=== PATIENT | male | born 1945 | race Caucasian/White ===

== ENCOUNTER 2017-01-20 09:07 | Day surgery (SDC) | payer OTHER ==
[2017-01-19 11:58] VITALS: BMI 33.1
[2017-01-20] MEDS ORDERED: LIDOCAINE HCL/PF 1% SDV 5ML VIAL ONE (09:32)
[2017-01-20] MEDS ORDERED: PROPOFOL 20 ML ONE ×2 (09:32)
[2017-01-20 10:24] VITALS: TEMP 98.1
[2017-01-20 11:15] VITALS: BP 143/64; PULSE 53
--- NOTE | 2017-01-21 13:16 | PATH ---
Surgical Pathology Report Patient Name: BRADEN CAT [facility]. Rec. #: [id number] /Age/Gender: 1945 (Age: 71) / M Account: [id number] Location: U-ENDOSCOPY Taken: 01/20/2017 Received: 01/20/2017 Reported: 01/21/2017 Physicians: Óscar Bradley D.O. Specimen(s) Received A: POLYP TRANSVERSE COLON B: POLYP DESCENDING COLON Clinical History History of polyps Colon polyps and hemorrhoids Final Diagnosis A. COLON, TRANSVERSE, POLYP, POLYPECTOMY: POLYPOID FRAGMENT OF COLONIC MUCOSA WITH PROMINENT REACTIVE LYMPHOID AGGREGATE AND FOCAL SURFACE HYPERPLASTIC CHANGE B. COLON, DESCENDING, POLYP, POLYPECTOMY: HYPERPLASTIC POLYP. Electronically Signed Cain Kahn M.D. Gross Description A. Received in formalin, labeled "polyp transverse colon" is a hopson, irregular portion of soft tissue measuring 0.4 cm in greatest dimension. The specimen is submitted in toto in one cassette. B. Received in formalin, labeled "polyp descending colon" is a hopson, irregular portion of soft tissue measuring 0.3 cm in greatest dimension. The specimen is submitted in toto in one cassette. 01/20/201701/20/2017
== END 2017-01-20 11:15 | disposition home or self-care (01) ==
LOC: JASU-ENDO 09:07
PROVIDERS: ATTEND Internal Medicine Gastroenterology
PROC: 0DBL8ZX Excision of Transverse Colon, Via Natural or Artificial Opening Endoscopic, Diagnostic (ICD-10-PCS; 2017-01-20)
PROC: 0DBM8ZX Excision of Descending Colon, Via Natural or Artificial Opening Endoscopic, Diagnostic (ICD-10-PCS; principal; 2017-01-20 10:00)
DX: Z12.11 Encounter for screening for malignant neoplasm of colon (principal); Z86.010 Personal history of colon polyps; D12.4 Benign neoplasm of descending colon; D12.3 Benign neoplasm of transverse colon; K64.8 Other hemorrhoids
CPT/HCPCS: 88305-TC

== ENCOUNTER 2018-03-23 09:34 | Day surgery (SDC) | payer OTHER ==
[2018-03-22 12:42] VITALS: BMI 29.3
[2018-03-23] MEDS ORDERED: BUPIVACAINE HCL/PF (5 MG/ML) 30 ML VIAL IJ ONE (10:31)
[2018-03-23] MEDS ORDERED: DEXAMETHASONE SOD PHOSPHATE/PF 10 MG/ML SDV ONE (10:31)
[2018-03-23] MEDS ORDERED: MIDAZOLAM HCL 2 MG/2 ML SINGLE DOSE VIAL ONE ×2 (10:31→11:56)
[2018-03-23] MEDS ORDERED: EPINEPHrine 1:1,000 1 MG/1 ML - 30ML VIAL (INJECTION) ONE (11:05)
[2018-03-23] MEDS ORDERED: LACTATED RINGERS SOLUTION 1,000 ML IV SCH (11:15)
[2018-03-23] MEDS ORDERED: ONDANSETRON 4 MG/2 ML VIAL IVPUSH PRN (11:15)
[2018-03-23] MEDS ORDERED: oxyCODONE HCL 5 MG TABLET PO PRN ×2 (11:15)
[2018-03-23] MEDS ORDERED: LIDOCAINE HCL/PF 2% SDV 5ML VIAL ONE (11:21)
[2018-03-23] MEDS ORDERED: PROPOFOL 20 ML ONE ×6 (11:21→14:10)
[2018-03-23] MEDS ORDERED: DEXAMETHASONE SOD PHOSPHATE 4 MG/1 ML VIAL ONE (11:23)
[2018-03-23] MEDS ORDERED: KETOROLAC TROMETHAMINE 30 MG/1 ML VIAL ONE (11:23)
[2018-03-23] MEDS ORDERED: SUCCINYLCHOLINE CHLORIDE 200 MG/10 ML VIAL ONE (11:23)
--- NOTE | 2018-03-23 11:36 | OP ---
Operative Note - Note: Operative Date: 03/23/18 Pre-Operative Diagnosis: right shoulder rotator cuff tear, biceps tendinopathy, impingement Operation: right shoulder arthroscopy with rotator cuff repair, subacromial decompression, biceps tenotomy Implants: arthrex swivel lock x3 Post-Operative Diagnosis: Same as Pre-op Surgeon: Orion Guallpa Commercial Manager: Migue Mccray Anesthesia: General, Fractional Estimated Blood Loss (mls): 30 Operative Report Dictated: Yes
[2018-03-23] MEDS ORDERED: SODIUM CHLORIDE 0.9% P/F 10 ML VIAL IJ ONE (11:52)
[2018-03-23] MEDS ORDERED: ceFAZolin SODIUM 1 GM VIAL ONE (11:52)
--- NOTE | 2018-03-23 15:16 | OP ---
DATE OF OPERATION: 03/23/2018 PREOPERATIVE DIAGNOSIS: Right shoulder rotator cuff tear. POSTOPERATIVE DIAGNOSIS: Right shoulder rotator cuff tear. PROCEDURE: Right shoulder arthroscopy, rotator cuff repair, subacromial decompression, biceps tenotomy. ANESTHESIA: General and regional. POSTOPERATIVE CONDITION: Stable. COMPLICATIONS: None. SURGEON: Orion Guallpa MD WANT AD SUPERVISOR: MELLISSA Esqueda, whose skillful assistance was necessary for the safe and timely performance of this procedure. Mr. Mccray was able to help provide limb positioning, drive the camera, assist in suture passage, as well as insertion of fixation hardware. IMPLANTS: Arthrex SwiveLock x3. INDICATIONS: This is a pleasant, 72-year-old gentleman who has been experiencing right shoulder pain. MRI demonstrated full-thickness rotator cuff tear. Treatment options including nonoperative versus operative management were reviewed. Operative risks were reviewed in detail including bleeding, infection, neurovascular injury, need for further surgery, postoperative pain and stiffness, re-tear, progression of osteoarthritis. We discussed medical risks such as heart attack, stroke, DVT, PE, and . We discussed the lengthy rehabilitation from a surgery like this. I addressed all the patient's questions. He voiced understanding and elected to proceed. DESCRIPTION OF PROCEDURE: The patient was brought to the operating room after administration of a regional block in the preoperative holding area. He was placed into the beach chair position while still awake. All bony prominences were padded. The right upper extremity was then examined, demonstrating forward flexion to approximately 120 degrees and abduction to 80 degrees and external rotation to 40 degrees. Prior to prepping and draping the patient, he was gently manipulated, increasing forward flexion to 150 degrees. The patient was then prepped and draped in the usual sterile fashion. A preoperative dose of antibiotics given and the usual timeout procedure was performed. The standard posterior viewing portal was now established with an 11 blade. The arthroscope was passed into the joint. Examination of the cartilaginous surfaces demonstrated mild cartilage wear. Examination of the biceps demonstrated it was severely subluxed medially. No subscapularis was visualized. The arthroscope was now passed superiorly. Here , the anterior edge of the supraspinatus extending into the body of the infraspinatus was fully torn. The labrum was inspected, and there were some degenerative changes to the labrum diffusely. The incision was now made to release the biceps. This was done using a basket cutter device. The base was smoothed using a shaver. The synovitis on the anterior aspect of the joint was debrided as well. The dissection was now carried out, freeing the subscapularis from the surrounding scarred in tissue. This included release of the rotator interval. The subscapularis was released superiorly extending all the way to the base of the coracoid. Any adhesions on the posterior aspect were released as well utilizing a 70-degree scope to gain better visualization. The upper border of the subscapularis was sutured using a FiberLink suture and a Scorpion suture passer device. This was then repeated inferiorly. Attention was now turned towards the lesser tuberosity. Again, utilizing a 70- degree scope, the lesser tuberosity was debrided utilizing electrocautery as well as a shaving device. The previously passed sutures were now loaded onto 2 anchors which were punched and then inserted, reducing the subscapularis onto its anatomic footprint. Now that this repair was satisfactory, attention was turned to the greater tuberosity. Here, utilizing the regular 30-degree arthroscope, the footprint was debrided in similar fashion. Again, using the shaver and electrocautery, the cuff was debrided from the surrounding tissue including extensive subacromial bursectomy and decompression which was mostly laterally where most of the tightness was noted in the subacromial space. The rotator cuff was then sutured along the mid-portion of the supraspinatus tear utilizing a horizontal mattress pattern with the FiberTape suture. This was then loaded onto an anchor, and the supraspinatus was mobilized both laterally and anteriorly, reducing it onto the footprint. Full reduction over the footprint was not possible secondary to tissue loss due to the chronicity of the tear. Utilizing the sutures from the core of this anchor, these were passed in a [id number] fashion between the more anterior leaf of the supraspinatus and the body, closing down the anterior gap. The remainder of the tissue was examined, and no further mobilization or repair was possible. This left approximately the anterior 20% of the supraspinatus footprint uncovered. At this time, the excess fluid was withdrawn from the joint. The portals were sutured using 3-0 nylon. Sterile dressings were placed. Patient was extubated and transferred to recovery room in stable condition. Catalina [id number] MTDD
[2018-03-23 16:13] VITALS: TEMP 97.5
[2018-03-23 17:23] VITALS: BP 134/76; PULSE 92
== END 2018-03-23 16:50 | disposition home or self-care (01) ==
LOC: FASU 09:34
PROVIDERS: ATTEND Orthopaedic Surgery Sports Medicine
PROC: 0LN14ZZ Release Right Shoulder Tendon, Percutaneous Endoscopic Approach (ICD-10-PCS; 2018-03-23)
PROC: 0LQ14ZZ Repair Right Shoulder Tendon, Percutaneous Endoscopic Approach (ICD-10-PCS; principal; 2018-03-23 12:10)
PROC: 0RNJ4ZZ Release Right Shoulder Joint, Percutaneous Endoscopic Approach (ICD-10-PCS; 2018-03-23 12:10)
DX: M75.121 Complete rotator cuff tear or rupture of right shoulder, not specified as traumatic (principal)
CPT/HCPCS: 94760

== ENCOUNTER 2018-10-21 14:28 | Inpatient (IN) | payer OTHER ==
--- NOTE | 2018-10-21 14:56 | PDOC ---
History of Present Illness - General Stated Complaint: FEVER/CHILLS Time Seen by Provider: 10/21/18 14:56 - History of Present Illness Initial Comments: Brandon Martinez is a 73yo man with a PMH of HLD, CAD s/p stents, previous CVA who presents with fevers to 102 and shivering chills for two days following a prostate biopsy. He reports that he was seen on Tuesday by urology due to symptoms of difficulty urinating and dysuria (reported by pt's , though he denies dysuria currently). Per Mr Martinez and his , he had an ultrasound and prostate biopsy. Following the procedure, he was sent home with oral antibiotics , which he has been taking as prescribed. On night, he started to have fevers and shivering chills at home. His reports that the fevers have been up to 102F, and he has been taking acetaminophen every 4-6 hours at home to control the fever. He otherwise denies any associated symptoms including headache, congestion, cough, chest pain, nausea/vomiting, abdominal pain, change in bowel habits, dysuria, hematuria, frequency, or penile discharge. Past History - Past Medical History Allergies/Adverse Reactions: Allergies Allergy/AdvReac Type Severity Reaction Status Date / Time No Known Allergies Allergy Verified 10/21/18 15:12 Home Medications: Ambulatory Orders Aspirin [Aspirin EC] 81 mg PO DAILY #0 tab.chew 02/04/12 Nora-3 Fatty Acids [Nora-3] 1,000 mg PO DAILY 05/20/14 Pnv/Iron,Carb/Om-3/FA/Fat 1 [Multivitamin with Minerals Cap] 1 each PO DAILY Pravastatin Sodium [Pravachol -] 40 mg PO HS 03/23/18 Anemia: No Asthma: No Cancer: No Cardiac Disorders: Yes (CAD) CVA: Yes (2013-no weakness) COPD: No CHF: No Dementia: No Diabetes: No GI Disorders: No Disorders: Yes (BPH) HTN: No Hypercholesterolemia: Yes Liver Disease: No Seizures: No Thyroid Disease: No - Surgical History Abdominal Surgery: Yes (Left Inguinal Hernia Repair) Appendectomy: No Cardiac Surgery: Yes (CARDIAC STENTS X 3) Cholecystectomy: No Lung Surgery: No Neurologic Surgery: Yes (Cervical Fusion) Orthopedic Surgery: Yes (Cervical Fusion 10yrs ago) - Suicide/Smoking/Psychosocial Hx Smoking Status: No Smoking History: Former smoker Have you smoked in the past 12 months: No Number of Cigarettes Smoked Daily: 10 If you are a former smoker, when did you quit?: 2010 Hx Alcohol Use: Yes (Occasional) Drug/Substance Use Hx: No Substance Use Type: Alcohol Hx Substance Use Treatment: No Review of Systems - Review of Systems Comments:: General: +Fevers, +shivering. No weight or appetite change, no malaise HEENT: No changes in vision, no changes in hearing, no congestion, no sore throat CV: No chest pain, no palpitations, no LE edema Pulm: No SOB, no cough, no wheezing GI: No nausea or vomiting, no change in bowel habits, no melena : No frequency, no urgency, no dysuria. Recent prostate biopsy Musc: No back pain, no joint swelling, no recent injury Skin: No rash, no lesions, no erythema Endo: No excessive thirst, no heat/cold intolerance Heme: No unusual bruising or bleeding, no swollen glands Neuro: No syncope, no numbness/tingling, no focal weakness Vasc: No claudication Psych: No recent change in mood, no SI or HI *Physical Exam - Physical Exam Comments: General: Comfortable, no acute distress HEENT: PERRL, EOMI, MMM, voice normal, normal neck ROM, no LAD Cards: RRR, no murmur appreciated Pulm: Comfortable on room air, clear to auscultation bilaterally Abd: Soft, nontender, nondistended : No CVA tenderness Rectal: Normal tone, no blood noted, no perianal lesions Ext: Atraumatic. No LE edema. ROM intact. Strength 5/5 and equal bilaterally Vasc: Extremities WWP. Palpable radial and pedal pulses bilaterally Skin: Normal color, no rashes or lesions Neuro: A&Ox3, CN grossly intact, normal speech, motor/sensory grossly intact and symmetric Psych: Mood appropriate to situation ED Treatment Course - LABORATORY CBC & Chemistry Diagram: 10/21/18 16:50 10/21/18 16:50 Medical Decision Making - Medical Decision Making 10/21/18 15:19 Brandon Martinez is a 73yo man with a PMH of CAD s/p stents (6-7yrs ago), previous CVA, and HLD who presents with fevers to 102F and shivering chills at home following a prostate biopsy on Tuesday. - Concerning for gram negative bacteremia secondary to prostate biopsy. Ddx also includes prostatitis, UTI, or infection of the surgical incision/site. - Sepsis workup initiated including CBC, CMP, coags, UA, urine culture, blood cultures, lactate, EKG, CXR - 2500mL NS per sepsis protocol - Zosyn for possible bacteremia. Given recent prostate biopsy, most likely gram negatives. No history concerning for MRSA 10/21/18 15:50 - Rectal temp 99.2 10/21/18 16:43 - Patient's reports that he is now shivering again - Oral temp rechecked. Now 99.8 - 975mg PO acetaminophen for fever; no need to recheck rectal temp at this time given fevers at home to 102 10/21/18 18:10 - Labs, EKG, CXR reviewed. - EKG with NSR - CXR with poor inspiration, but no focal abnormalities appreciated - Labs notable only for MAGUI with Cr increased to 1.4 from 0.9 on most recent labs. - Cultures pending - Contacted Dr Owens (urologist) regarding symptoms, labs, likely admission. He agrees with this plan. - Sees Dr Warren as outpatient. Contacted hospitalist team for admission for likely bacteremia. Seen and discussed with Dr Rogers and Dr Urbina. *DC/Admit/Observation/Transfer Diagnosis at time of Disposition: Fever and chills - Discharge Dispostion Condition at time of disposition: Stable Decision to Admit order: Yes - Referrals Referrals: Benoit Warren MD [Primary Care Provider] - - Patient Instructions - Post Discharge Activity
[2018-10-21] MEDS ORDERED: SODIUM CHLORIDE 0.9% 500 ML INFUS.BAG IV ONE (15:17)
[2018-10-21] MEDS ORDERED: PIPERACILLIN/TAZOB 4.5 GM 4.5 GM in DEXTROSE 5%-WATER 100 ML IVPB ONE (15:17)
[2018-10-21] MEDS ORDERED: PIPERACILLIN/TAZOB 4.5 GM 4.5 GM/100 ML BAG IVPB ONE (15:54)
--- NOTE | 2018-10-21 16:12 | PDOC ---
Attending Attestation - Resident Resident Name: MasonConsuelo - ED Attending Attestation I have performed the following: I have examined & evaluated the patient, The case was reviewed & discussed with the resident, I agree w/resident's findings & plan, Exceptions are as noted - Medical Decision Making 10/21/18 15:52 A portion of this note was documented by scribe services under my direction. I have reviewed the details of the note, within reason, and agree with the documentation with the following case summary and management plan written by me. Patient treated in the ED. Nursing notes are reviewed and incorporated into the medical decision-making. Vital signs reviewed. Peripheral IV access obtained by the nurse, laboratory studies are drawn and sent, reviewed and interpreted by myself. Vital Signs Temp Pulse Resp BP Pulse Ox 98 F 71 16 111/71 100 10/21/18 14:30 10/21/18 14:30 10/21/18 14:30 10/21/18 14:30 10/21/18 14:30 73-year-old male with past medical history of hyperlipidemia, BPH. The patient presents with fevers and chills for 2 days. 3 days ago, the patient underwent routine prostate biopsy. The following day, developed fevers and chills. Denies any abdominal pain. Denies dysuria. Patient called his urologist, Dr. Valenzuela, who directed pt to the ER. Findings concerning for bacteremia. Sepsis workup initiated. We'll start empiric Zosyn for potential gram-negative aleah sepsis. Labs, blood cultures and admission to the hospital. <Gibran Rogers - Last Filed: 10/21/18 16:12> - HPI HPI: 10/21/18 16:32 The patient is a 73-year-old male, with a past medical history of HLD and BPH, who presents to the ED with 2 days of fevers/chills. Patient reports having a routine prostate biopsy 3 years ago. Patient called his Urologist (Dr. Hickey) who advised that the patient report to the ED for further evaluation. The patient denies any chest pain, shortness of breath, dizziness and headache. Denies nausea, vomiting, diarrhea and constipation. Denies dysuria, frequency, urgency and hematuria. - Physicial Exam PE: 10/21/18 16:28 GENERAL: Awake, alert, and fully oriented, in no acute distress HEAD: No signs of trauma EYES: PERRLA, EOMI, sclera anicteric, conjunctiva clear ENT: Auricles normal inspection, hearing grossly normal, nares patent. Moist mucosa NECK: Normal ROM, supple, no lymphadenopathy, JVD, or masses ABDOMEN: Soft, nontender, normoactive bowel sounds. No guarding, no rebound. No masses EXTREMITIES: Normal range of motion, no edema. No clubbing or cyanosis. No cords, erythema, or tenderness NEUROLOGICAL: Cranial nerves II through XII grossly intact. Normal speech, normal gait SKIN: Warm, Dry, normal turgor, no rashes or lesions noted. <Monica Greco - Last Filed: 10/21/18 16:33> Heart Score/ECG Review #1 ECG reviewed & interpreted by me at: 15:20 10/21/18 16:12 NSR 69, no std/argenis, left axis deviation, intervals WNL, QTC 407 msec <Gibran Rogers - Last Filed: 10/21/18 16:12> Attestations - Attestations 10/21/18 16:33 Documentation prepared by Monica Greco, acting as medical staff services manager for Gibran Rogers MD. <Monica Greco - Last Filed: 10/21/18 16:33>
[2018-10-21 16:24] LABS: URINE APPEARANCE CLEAR; URINE BILIRUBIN NEGATIVE (<2.0 mg/dL); URINE COLOR AMBER; URINE GLUCOSE (UA) NEGATIVE (NEGATIVE); URINE KETONE TRACE (NEGATIVE); URINE LEUK ESTERASE NEGATIVE (NEGATIVE); URINE NITRITE NEGATIVE (NEGATIVE); URINE PROTEIN NEGATIVE (NEGATIVE); URINE UROBILINOGEN 4.0 E.U/dl mg/dL (0.2-1.0)
[2018-10-21] MEDS ORDERED: ACETAMINOPHEN 325 MG TABLET (FP) PO ONE (16:43)
[2018-10-21 17:01] LABS: BASO % 0.3 % (0-2.0); EOS % 1.4 % (0-4.5); HEMATOCRIT 43.9 % (35.4-49); HEMOGLOBIN 15.1 GM/dL (11.7-16.9); LYMPH % 7.1 % (8-40); MCH 31.2 pg (25.7-33.7); MCHC 34.3 g/dl (32.0-35.9); MEAN CELL VOLUME 90.8 fl (80-96); MEAN PLT VOLUME 8.8 fl (7.5-11.1); MONO % 5.2 % (3.8-10.2); PLATELET COUNT 235 K/MM3 (134-434); RBC 4.84 M/mm3 (4.00-5.60); RDW 13.2 % (11.9-15.9); WHITE BLOOD COUNT 7.3 K/mm3 (4.0-10.0)
[2018-10-21 17:03] LABS: VENOUS PH 7.32 (7.32-7.42)
[2018-10-21] MEDS ORDERED: ACETAMINOPHEN 325 MG TABLET (FP) ONE (17:07)
[2018-10-21 17:38] LABS: ALBUMIN 3.5 g/dl (3.4-5.0); ALK PHOS 57 U/L (45-117); ANION GAP 6 MMOL/L (8-16); BILIRUBIN,TOTAL 0.2 mg/dL (0.2-1); BLOOD UREA NITROGEN 18 mg/dL (7-18); CALCIUM 8.2 mg/dL (8.5-10.1); CHLORIDE 101 mmol/L (98-107); CO2 31 mmol/L (21-32); CREATININE 1.4 mg/dL (0.55-1.3); GLUCOSE,RANDOM 96 mg/dL (74-106); POTASSIUM 4.4 mmol/L (3.5-5.1); SGOT/AST 95 U/L (15-37); SGPT/ALT 96 U/L (13-61); SODIUM 138 mmol/L (136-145); TOT PROT 6.9 g/dl (6.4-8.2)
[2018-10-21] MEDS ORDERED: ACETAMINOPHEN 325 MG TABLET (FP) PO PRN (19:37)
--- NOTE | 2018-10-21 19:52 | HP ---
Admitting History and Physical - Primary Care Physician PCP: Benoit Warren - Admission Chief Complaint: Fever, Chills History of Present Illness: This is a 73 y/o man with a PMHx of CAD s/p Stents x2, HLD, CVA (no residual), BPH. Who presents to the ED with fever, chills x2 days. Patient is s/p prostate biopsy last Tuesday placed on sulfamethoxazole, per patient's was taken as prescribed. Patient's spouse reports pt having a subjective fever 102 at home , with chills and shakiness. Patient denies cough, SOB, dizziness, AIKEN, CP, palpitations, AP, N/V/D, constipation. 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 Cardiovascular: Yes: CAD, Hyperlipdemia Renal/: Yes: BPH - Past Surgical History Past Surgical History: Yes: Arthrosocopy (right shoulder), Stent - Smoking History Smoking history: Former smoker Have you smoked in the past 12 months: No Aproximately how many cigarettes per day: 10 If you are a former smoker, when did you quit?: 2010 - Alcohol/Substance Use Hx Alcohol Use: Yes (Occasional) History of Substance Use: reports: None - Social History Usual Living Arrangement: Yes: With Spouse ADL: Independent History of Recent Travel: No Home Medications - Allergies Allergies/Adverse Reactions: Allergies Allergy/AdvReac Type Severity Reaction Status Date / Time No Known Allergies Allergy Verified 10/21/18 15:12 - Home Medications Home Medications: Ambulatory Orders Aspirin [Aspirin EC] 81 mg PO DAILY #0 tab.chew 02/04/12 [place]-3 Fatty Acids [[place]-3] 1,000 mg PO DAILY 05/20/14 Pnv/Iron,Carb/Om-3/FA/Fat 1 [Multivitamin with Minerals Cap] 1 each PO DAILY Pravastatin Sodium [Pravachol -] 40 mg PO HS 03/23/18 Family Disease History - Family Disease History Family History: Unable to Obtain Review of Systems - Review of Systems Constitutional: reports: Chills, Fever Eyes: reports: No Symptoms HENT: reports: No Symptoms Neck: reports: No Symptoms Cardiovascular: reports: No Symptoms Respiratory: reports: No Symptoms Gastrointestinal: reports: No Symptoms Genitourinary: reports: No Symptoms Breasts: reports: No Symptoms Reported Musculoskeletal: reports: No Symptoms Integumentary: reports: No Symptoms Neurological: reports: No Symptoms Endocrine: reports: No Symptoms Hematology/Lymphatic: reports: No Symptoms Psychiatric: reports: No Symptoms Physical Examination Vital Signs: Vital Signs Temperature 97.8 F 10/21/18 18:29 Pulse Rate 92 H 10/21/18 18:29 Respiratory Rate 16 10/21/18 18:29 Blood Pressure 114/61 10/21/18 18:29 O2 Sat by Pulse Oximetry (%) 97 10/21/18 18:29 Constitutional: Yes: Well Nourished, No Distress, Calm, Obese Eyes: Yes: WNL, Conjunctiva Clear, EOM Intact, PERRL HENT: Yes: WNL, Atraumatic, Normocephalic Neck: Yes: WNL, Supple, Trachea Midline Cardiovascular: Yes: WNL, Regular Rate and Rhythm, S1, S2 Respiratory: Yes: Rhonchi Gastrointestinal: Yes: Normal Bowel Sounds, Soft, Abdomen, Obese, Distention Breast(s): Yes: WNL Musculoskeletal: Yes: WNL Extremities: Yes: WNL Edema: No Peripheral Pulses WNL: Yes Neurological: Yes: WNL, Alert, Confusion, Cran Nerves II-XII Intact ...Motor Strength: WNL Psychiatric: Yes: WNL, Alert Labs: CBC, BMP 10/21/18 16:50 10/21/18 16:50 Laboratory Results - last 24 hr 10/21/18 10/21/18 10/21/18 15:35 16:50 16:50 WBC 7.3 RBC 4.84 Hgb 15.1 Hct 43.9 MCV 90.8 MCH 31.2 MCHC 34.3 RDW 13.2 Plt Count 235 MPV 8.8 Absolute Neuts (auto) 6.2 Neutrophils % 86.0 H D Lymphocytes % 7.1 L D Monocytes % 5.2 Eosinophils % 1.4 Basophils % 0.3 Nucleated RBC % 0 PT with INR Cancelled INR Cancelled PTT (Actin FS) Cancelled VBG pH POC VBG pCO2 POC VBG pO2 Mixed VBG HCO3 Sodium Potassium Chloride Carbon Dioxide Anion Gap BUN Creatinine Creat Clearance w eGFR Random Glucose Lactic Acid Calcium Total Bilirubin AST ALT Alkaline Phosphatase Total Protein Albumin Urine Color Tiffanie Urine Appearance Clear Urine pH 5.0 Ur Specific Wilsey 1.027 Urine Protein Negative Urine Glucose (UA) Negative Urine Ketones Trace H Urine Blood Negative Urine Nitrite Negative Urine Bilirubin Negative Urine Urobilinogen 4.0 e.u/dl Ur Leukocyte Esterase Negative 10/21/18 10/21/18 10/21/18 16:50 16:50 16:50 WBC RBC Hgb Hct MCV MCH MCHC RDW Plt Count MPV Absolute Neuts (auto) Neutrophils % Lymphocytes % Monocytes % Eosinophils % Basophils % Nucleated RBC % PT with INR INR PTT (Actin FS) VBG pH 7.32 POC VBG pCO2 59.0 H POC VBG pO2 27.0 L Mixed VBG HCO3 29.6 H Sodium 138 Potassium 4.4 Chloride 101 Carbon Dioxide 31 Anion Gap 6 L BUN 18 Creatinine 1.4 H Creat Clearance w eGFR 49.41 Random Glucose 96 Lactic Acid 2.0 Calcium 8.2 L Total Bilirubin 0.2 AST 95 H ALT 96 H Alkaline Phosphatase 57 Total Protein 6.9 Albumin 3.5 Urine Color Urine Appearance Urine pH Ur Specific Wilsey Urine Protein Urine Glucose (UA) Urine Ketones Urine Blood Urine Nitrite Urine Bilirubin Urine Urobilinogen Ur Leukocyte Esterase Current Medications Generic Name Dose Route Start Last Admin Trade Name Freq PRN Reason Stop Dose Admin Acetaminophen 650 mg 10/21/18 22:52 10/22/18 06:18 Tylenol - PO 650 mg Q6H PRN Administration FEVER Aspirin 81 mg 10/22/18 10:00 Ecotrin - PO DAILY [facility] Atorvastatin Calcium 10 mg 10/22/18 22:00 Lipitor - PO HS KAYLYN Piperacillin Sod/Tazobactam 50 mls @ 100 mls/hr 10/22/18 18:00 Sod 3.375 gm/ Dextrose IVPB Q8H-IV [facility] Protocol Piperacillin Sod/Tazobactam 50 mls @ 100 mls/hr 10/22/18 06:45 Sod 3.375 gm/ Dextrose IVPB 10/22/18 07:14 ONCE ONE Protocol Tamsulosin HCl 0.4 mg 10/22/18 08:30 Flomax - PO DAILY@0830 [facility] Imaging - Results Chest X-ray: Image Reviewed EKG: Image Reviewed Problem List - Problems (1) Sepsis Assessment/Plan: Likely secondary to UTI vs recent Prostate Biopsy Failed Outpatient Therapy for UTI UA- neg Urine culture-pending Blood Cultures-pending LA- nl T Max 99.8 Fluid Resuscitation 2500ml, given in ED Zosyn started in ED will continue Appreciate ID consult Maintain MAP > 65 Monitor CBC, BMP Monitor vitals Tylenol prn Gentle IVF concern for fluid overload Code(s): A41.9 - SEPSIS, UNSPECIFIED ORGANISM (2) Fever and chills Assessment/Plan: See Above Code(s): R50.9 - FEVER, UNSPECIFIED (3) CAD (coronary artery disease) Assessment/Plan: s/p Stents Continue home meds EKG- reviewed Code(s): I25.10 - ATHSCL HEART DISEASE OF [place] CORONARY ARTERY W/O ANG PCTRS (4) BPH (benign prostatic hyperplasia) Assessment/Plan: Continue Flomax Monitor urine output Code(s): N40.0 - BENIGN PROSTATIC HYPERPLASIA WITHOUT LOWER URINRY TRACT SYMP (5) CVA (cerebral vascular accident) Assessment/Plan: family reports memory impairment no residuals Fall Precautions Code(s): I63.9 - CEREBRAL INFARCTION, UNSPECIFIED (6) HLD (hyperlipidemia) Assessment/Plan: On Pravachol NF will start on Lipitor Code(s): E78.5 - HYPERLIPIDEMIA, UNSPECIFIED Assessment/Plan 73 y/o man admitted for Fever and Chills secondary to Urosepsis, Failed Outpatient Therapy for UTI for further evaluation of their emergent condition. Plan: FEN PO fluids as tolerated Replete lytes prn Low Na, Low Cholesterol Diet DVT ppx OOB SCDs Heparin SQ Dispo: Requires Inpatient Care Visit type - Emergency Visit Emergency Visit: Yes ED Registration Date: 10/21/18 Care time: The patient presented to the Emergency Department on the above date and was hospitalized for further evaluation of their emergent condition. - New Patient This patient is new to me today: Yes Date on this admission: 10/21/18 - Critical Care Critical Care patient: No
[2018-10-22 01:57] VITALS: BMI 30.7
[2018-10-22] MEDS: ACETAMINOPHEN 325 MG TABLET (FP) PO PRN ×2 (06:18→15:24)
[2018-10-22] MEDS ORDERED: PIPERACILLIN/TAZOB 3.375 GM 3.375 GM in DEXTROSE 5%-WATER - 50 ML IVPB ONE (06:45)
[2018-10-22] MEDS ORDERED: PIPERACILLIN/TAZOBACTAM 3.375 GM VIAL IVPB ONE ×2 (08:09→17:43)
[2018-10-22] MEDS ORDERED: DEXTROSE 5%-WATER - 50 ML IVPB ONE ×2 (08:10→17:43)
[2018-10-22] MEDS: TAMSULOSIN HCL 0.4 MG CAP PO SCH (08:29)
[2018-10-22 08:43] LABS: BASO % 0.3 % (0-2.0); EOS % 0.7 % (0-4.5); HEMOGLOBIN 13.5 GM/dL (11.7-16.9); LYMPH % 8.4 % (8-40); MCH 29.2 pg (25.7-33.7); MEAN CELL VOLUME 91.2 fl (80-96); MEAN PLT VOLUME 8.2 fl (7.5-11.1); MONO % 5.9 % (3.8-10.2); NEUT % 84.7 % (42.8-82.8); PLATELET COUNT 209 K/MM3 (134-434); RBC 4.61 M/mm3 (4.00-5.60); RDW 13.2 % (11.9-15.9); WHITE BLOOD COUNT 6.4 K/mm3 (4.0-10.0)
--- NOTE | 2018-10-22 08:52 | PN ---
Progress Note, Physician History of Present Illness: admitted with fever and chills - Current Medication List Current Medications: Active Medications Acetaminophen (Tylenol -) 650 mg PO Q6H PRN PRN Reason: FEVER Last Admin: 10/22/18 06:18 Dose: 650 mg Aspirin (Ecotrin -) 81 mg PO DAILY [facility] Atorvastatin Calcium (Lipitor -) 10 mg PO HS [facility] Heparin Sodium (Porcine) (Heparin -) 5,000 unit SQ BID [facility] Piperacillin Sod/Tazobactam (Sod 3.375 gm/ Dextrose) 50 mls @ 100 mls/hr IVPB Q8H-IV [facility]; Protocol Tamsulosin HCl (Flomax -) 0.4 mg PO DAILY@0830 [facility] Last Admin: 10/22/18 08:29 Dose: 0.4 mg - Objective Vital Signs: Vital Signs Temperature 101.9 F H 10/22/18 06:00 Pulse Rate 94 H 10/22/18 06:00 Respiratory Rate 18 10/22/18 06:00 Blood Pressure 156/84 10/22/18 06:00 O2 Sat by Pulse Oximetry (%) 100 10/21/18 22:46 Cardiovascular: Yes: S1, S2 Respiratory: Yes: Regular, CTA Bilaterally Gastrointestinal: Yes: Normal Bowel Sounds, Soft. No: Tenderness Labs: CBC, BMP 10/22/18 08:20 INR, PTT INR Cancelled 10/21/18 16:50 Problem List - Problems (1) Sepsis Assessment/Plan: Likely secondary to UTI vs recent Prostate Biopsy Failed Outpatient Therapy for UTI UA- neg Urine culture-pending Blood Cultures-pending LA- nl T Max 99.8 Fluid Resuscitation 2500ml, given in ED Zosyn started in ED will continue Appreciate ID consult Maintain MAP > 65 Monitor CBC, BMP Monitor vitals Tylenol prn Gentle IVF concern for fluid overload Code(s): A41.9 - SEPSIS, UNSPECIFIED ORGANISM (2) BPH (benign prostatic hyperplasia) Assessment/Plan: Urology Continue Flomax Monitor urine output Code(s): N40.0 - BENIGN PROSTATIC HYPERPLASIA WITHOUT LOWER URINRY TRACT SYMP (3) CAD (coronary artery disease) Assessment/Plan: s/p Stents Continue home meds EKG- reviewed Code(s): I25.10 - ATHSCL HEART DISEASE OF [place] CORONARY ARTERY W/O ANG PCTRS (4) CVA (cerebral vascular accident) Assessment/Plan: an: family reports memory impairment no residuals Fall Precautions on Lipitor Code(s): I63.9 - CEREBRAL INFARCTION, UNSPECIFIED
[2018-10-22] MEDS: ASPIRIN COATED 81 MG TABLET.EC PO SCH (09:02)
[2018-10-22] MEDS: HEPARIN NA (PORCINE) 5,000 UNITS/ML 1ML VIAL SQ SCH ×2 (09:02→21:11)
[2018-10-22 09:15] LABS: ANION GAP 7 MMOL/L (8-16); BLOOD UREA NITROGEN 13 mg/dL (7-18); CALCIUM 8.1 mg/dL (8.5-10.1); CHLORIDE 106 mmol/L (98-107); CO2 27 mmol/L (21-32); CREATININE 1.2 mg/dL (0.55-1.3); GLUCOSE,RANDOM 101 mg/dL (74-106); SODIUM 140 mmol/L (136-145)
--- NOTE | 2018-10-22 13:14 | CON.ID ---
Consult Consult Specialty:: infectious disease Referred by:: dr post Reason for Consultation:: fever - History of Present Illness Chief Complaint: fever and chills History of Present Illness: 73 yo man, with PMH BPH on flomax, developed some discomfort with urinating and went to see his urologist on Tuesday- he had what sounds like a cystoscopy in the office and was discharged on Bactrim he developed fevers and chills at home and called his urologist who advised ER evaluation no vomiting no pain no dysuria or hematuria no history of recent UTIs no recent antibiotics was well prior to visit to urologist - History Source History Provided By: Patient, Family Member Limitations to Obtaining History: Clinical Condition - 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 Cardio/Vascular: Yes: CAD, Hyperlipdemia Renal/: Yes: BPH - Past Surgical History Past Surgical History: Yes: Arthrosocopy (right shoulder), Stent - Alcohol/Substance Use Hx Alcohol Use: Yes (Occasional) History of Substance Use: reports: None - Smoking History Smoking history: Former smoker Have you smoked in the past 12 months: No Aproximately how many cigarettes per day: 10 If you are a former smoker, when did you quit?: 2010 - Social History Usual Living Arrangement: With Spouse ADL: Independent Place of : Other History of Recent Travel: No Home Medications - Allergies Allergies/Adverse Reactions: Allergies Allergy/AdvReac Type Severity Reaction Status Date / Time No Known Allergies Allergy Verified 10/21/18 15:12 - Home Medications Home Medications: Ambulatory Orders Aspirin [Aspirin EC] 81 mg PO DAILY #0 tab.chew 02/04/12 [place]-3 Fatty Acids [[place]-3] 1,000 mg PO DAILY 05/20/14 Pnv/Iron,Carb/Om-3/FA/Fat 1 [Multivitamin with Minerals Cap] 1 each PO DAILY Pravastatin Sodium [Pravachol -] 40 mg PO HS 03/23/18 Review of Systems - Review of Systems Constitutional: reports: Chills, Fever Eyes: reports: No Symptoms HENT: reports: No Symptoms. denies: Difficult Swallowing Neck: reports: No Symptoms Cardiovascular: reports: No Symptoms. denies: Chest Pain Respiratory: reports: No Symptoms. denies: Cough, SOB Gastrointestinal: denies: Abdominal Pain Genitourinary: denies: Burning, Dysuria, Flank Pain Physical Exam Vital Signs: Vital Signs Temperature 98.0 F 10/22/18 10:00 Pulse Rate 65 10/22/18 10:00 Respiratory Rate 18 10/22/18 10:00 Blood Pressure 123/59 L 10/22/18 10:00 O2 Sat by Pulse Oximetry (%) 100 10/21/18 22:46 Constitutional: Yes: Well Nourished, No Distress, Calm Eyes: Yes: WNL HENT: Yes: Atraumatic, Normocephalic Neck: Yes: Supple, Trachea Midline Cardiovascular: Yes: Regular Rate and Rhythm Respiratory: Yes: Regular, CTA Bilaterally Gastrointestinal: Yes: Normal Bowel Sounds, Soft, Abdomen, Obese. No: Tenderness, Rebound Renal/: Yes: Other (no testicular swelling). No: Bladder Distention, CVA Tenderness - Left, CVA Tenderness - Right Edema: No Integumentary: Yes: WNL Psychiatric: Yes: Alert, Oriented Labs: CBC, BMP 10/22/18 08:20 10/22/18 08:20 Laboratory Tests 10/21/18 16:50 AST 95 H ALT 96 H UA negative Imaging - Results Chest X-ray: Report Reviewed, Image Reviewed Problem List - Problems (1) Fever and chills Code(s): R50.9 - FEVER, UNSPECIFIED (2) Abnormal LFTs Code(s): R94.5 - ABNORMAL RESULTS OF LIVER FUNCTION STUDIES Assessment/Plan fevers s/p urologic procedure- ?cystoscopy, ?biopsy continue zosyn no history of MDROs repeat lfts in am renal/bladder sonogram get results of urine culture from urologist office in am urology to evaluate
--- NOTE | 2018-10-22 13:42 | EKG ---
Test Reason : Blood Pressure : / mmHG Vent. Rate : 069 BPM Atrial Rate : 069 BPM P-R Int : 162 ms QRS Dur : 082 ms QT Int : 380 ms P-R-T Axes : 041 -39 047 degrees QTc Int : 407 ms NORMAL SINUS RHYTHM LEFT AXIS DEVIATION ABNORMAL ECG WHEN COMPARED WITH ECG OF 16-MAR-2012 13:30, NO SIGNIFICANT CHANGE WAS FOUND Confirmed by BECCA GAINES MD ([id number]) on 10/22/2018 1:42:40 PM Referred By: Confirmed By:BECCA GAINES MD
[2018-10-22] MEDS: PIPERACILLIN/TAZOB 3.375 GM 3.375 GM in DEXTROSE 5%-WATER - 50 ML IVPB SCH (17:52)
[2018-10-22] MEDS ORDERED: PT OWN MED DRAWER 7, Y5N ONE ×2 (20:00→22:01)
[2018-10-22] MEDS: ATORVASTATIN CA 10 MG TABLET (FP) PO SCH (21:11)
[2018-10-23] MEDS ORDERED: PIPERACILLIN/TAZOBACTAM 3.375 GM VIAL IVPB ONE ×3 (01:07→17:06)
[2018-10-23] MEDS ORDERED: DEXTROSE 5%-WATER - 50 ML IVPB ONE ×3 (01:07→17:06)
[2018-10-23] MEDS ORDERED: PT OWN MED DRAWER 7, Y5N ONE (01:33)
[2018-10-23] MEDS: PIPERACILLIN/TAZOB 3.375 GM 3.375 GM in DEXTROSE 5%-WATER - 50 ML IVPB SCH ×3 (01:44→17:18)
[2018-10-23] MEDS: ACETAMINOPHEN 325 MG TABLET (FP) PO PRN (02:16)
[2018-10-23 08:23] LABS: ALBUMIN 3.1 g/dl (3.4-5.0); ALK PHOS 53 U/L (45-117); ANION GAP 7 MMOL/L (8-16); BILIRUBIN,TOTAL 0.4 mg/dL (0.2-1); BLOOD UREA NITROGEN 14 mg/dL (7-18); CALCIUM 8.3 mg/dL (8.5-10.1); CHLORIDE 104 mmol/L (98-107); CO2 30 mmol/L (21-32); CREATININE 1.1 mg/dL (0.55-1.3); GLUCOSE,RANDOM 83 mg/dL (74-106); POTASSIUM 4.2 mmol/L (3.5-5.1); SGOT/AST 79 U/L (15-37); SGPT/ALT 113 U/L (13-61); SODIUM 140 mmol/L (136-145); TOT PROT 6.5 g/dl (6.4-8.2)
[2018-10-23] MEDS: ASPIRIN COATED 81 MG TABLET.EC PO SCH (09:26)
[2018-10-23] MEDS: TAMSULOSIN HCL 0.4 MG CAP PO SCH (09:26)
[2018-10-23] MEDS: HEPARIN NA (PORCINE) 5,000 UNITS/ML 1ML VIAL SQ SCH ×2 (09:26→21:25)
--- NOTE | 2018-10-23 09:46 | PN ---
Progress Note, Physician Chief Complaint: EVENTS AND NOTES REVIEWED AWAKE, BEDSIDE CONFUSED - Current Medication List Current Medications: Active Medications Acetaminophen (Tylenol -) 650 mg PO Q6H PRN PRN Reason: FEVER Last Admin: 10/23/18 02:16 Dose: 650 mg Aspirin (Ecotrin -) 81 mg PO DAILY [facility]PL[facility] BY [facility] Last Admin: 10/23/18 09:26 Dose: 81 mg Atorvastatin Calcium (Lipitor -) 10 mg PO HS REPLAC[facility] BY [facility] Last Admin: 10/22/18 21:11 Dose: 10 mg Heparin Sodium (Porcine) (Heparin -) 5,000 unit SQ BID [facility]PL[facility] Last Admin: 10/23/18 09:26 Dose: 5,000 unit Piperacillin Sod/Tazobactam (Sod 3.375 gm/ Dextrose) 50 mls @ 100 mls/hr IVPB Q8H-IV [facility]; Protocol Last Admin: 10/23/18 09:27 Dose: 100 mls/hr Tamsulosin HCl (Flomax -) 0.4 mg PO DAILY@0830 [facility]PL[facility] Last Admin: 10/23/18 09:26 Dose: 0.4 mg - Objective Vital Signs: Vital Signs Temperature 98.5 F 10/23/18 06:00 Pulse Rate 95 H 10/23/18 06:00 Respiratory Rate 20 10/23/18 06:00 Blood Pressure 143/72 10/23/18 06:00 O2 Sat by Pulse Oximetry (%) 100 10/21/18 22:46 Constitutional: Yes: Mild Distress Eyes: Yes: WNL HENT: Yes: WNL Neck: Yes: WNL Cardiovascular: Yes: WNL Respiratory: Yes: WNL Gastrointestinal: Yes: WNL Genitourinary: Yes: Polyuria Musculoskeletal: Yes: WNL Extremities: Yes: WNL Edema: No Integumentary: Yes: WNL Wound/Incision: Yes: Clean/Dry ...Motor Strength: LLE Psychiatric: Yes: Other Labs: CBC, BMP 10/22/18 08:20 10/23/18 06:00 INR, PTT INR Cancelled 10/21/18 16:50 Problem List - Problems (1) Old cerebrovascular accident (CVA) without late effect Code(s): Z86.73 - PRSNL HX OF TIA (TIA), AND CEREB INFRC W/O RESID DEFICITS (2) Toxic metabolic encephalopathy Code(s): G92 - TOXIC ENCEPHALOPATHY (3) Acute prostatitis Code(s): N41.0 - ACUTE PROSTATITIS (4) Abnormal LFTs Code(s): R94.5 - ABNORMAL RESULTS OF LIVER FUNCTION STUDIES (5) BPH (benign prostatic hyperplasia) Code(s): N40.0 - BENIGN PROSTATIC HYPERPLASIA WITHOUT LOWER URINRY TRACT SYMP (6) CAD (coronary artery disease) Code(s): I25.10 - ATHSCL HEART DISEASE OF [place] CORONARY ARTERY W/O ANG PCTRS (7) Fever and chills Code(s): R50.9 - FEVER, UNSPECIFIED Assessment/Plan IV ABX AWAIT CULTURES ID/ CONSULT CONFUSION BETTER IVF MONITOR LABS PSA PENDING
--- NOTE | 2018-10-23 10:54 | PN ---
Progress Note (short form) - Note Progress Note: still some lowgrade fevers Vital Signs Period Temp Pulse Resp BP Sys/[place] Pulse Ox Last 24 Hr 98.5 F-101 F 64-95 18-20 127-143/66-72 cor-rrr lungs clear abd soft,nt ext no edema CBC, BMP 10/22/18 08:20 10/23/18 06:00 Microbiology 10/21/18 15:35 Urine - Urine Clean Catch Urine Culture - Final NO GROWTH OBTAINED 10/21/18 16:50 Blood - Peripheral Venous Blood Culture - Preliminary NO GROWTH OBTAINED AFTER 24 HOURS, INCUBATION TO CONTINUE FOR 4 DAYS. 10/21/18 16:50 Blood - Peripheral Venous Blood Culture - Preliminary NO GROWTH OBTAINED AFTER 24 HOURS, INCUBATION TO CONTINUE FOR 4 DAYS. sonogram bladder/kidney- enlarged prostate, PVR of 89 cc Current Medications Acetaminophen (Tylenol -) 650 mg PO Q6H PRN PRN Reason: FEVER Last Admin: 10/23/18 02:16 Dose: 650 mg Aspirin (Ecotrin -) 81 mg PO DAILY [facility] Last Admin: 10/23/18 09:26 Dose: 81 mg Atorvastatin Calcium (Lipitor -) 10 mg PO HS [facility] Last Admin: 10/22/18 21:11 Dose: 10 mg Heparin Sodium (Porcine) (Heparin -) 5,000 unit SQ BID [facility] Last Admin: 10/23/18 09:26 Dose: 5,000 unit Piperacillin Sod/Tazobactam (Sod 3.375 gm/ Dextrose) 50 mls @ 100 mls/hr IVPB Q8H-IV [facility]; Protocol Last Admin: 10/23/18 09:27 Dose: 100 mls/hr Tamsulosin HCl (Flomax -) 0.4 mg PO DAILY@0830 [facility] Last Admin: 10/23/18 09:26 Dose: 0.4 mg a/p fevers s/p urologic procedure was on bactrim at time of admission awaiting urology evaluation abnl lfts unable to reach urologist by phone- awaiting consultation would like to get results of urine culture from the office if possible Problem List - Problems (1) Fever and chills Code(s): R50.9 - FEVER, UNSPECIFIED (2) Abnormal LFTs Code(s): R94.5 - ABNORMAL RESULTS OF LIVER FUNCTION STUDIES
[2018-10-23] MEDS: ATORVASTATIN CA 10 MG TABLET (FP) PO SCH (21:25)
[2018-10-24] MEDS ORDERED: PIPERACILLIN/TAZOBACTAM 3.375 GM VIAL IVPB ONE ×3 (01:45→17:39)
[2018-10-24] MEDS ORDERED: DEXTROSE 5%-WATER - 50 ML IVPB ONE ×3 (01:45→17:39)
[2018-10-24] MEDS: PIPERACILLIN/TAZOB 3.375 GM 3.375 GM in DEXTROSE 5%-WATER - 50 ML IVPB SCH ×3 (01:56→17:53)
[2018-10-24] MEDS: ASPIRIN COATED 81 MG TABLET.EC PO SCH (09:34)
[2018-10-24] MEDS: HEPARIN NA (PORCINE) 5,000 UNITS/ML 1ML VIAL SQ SCH ×2 (09:34→22:01)
[2018-10-24] MEDS: TAMSULOSIN HCL 0.4 MG CAP PO SCH (09:34)
--- NOTE | 2018-10-24 15:24 | PN ---
Progress Note, Physician Chief Complaint: awake and is bedside patient feels better no fevers today - Current Medication List Current Medications: Active Medications Acetaminophen (Tylenol -) 650 mg PO Q6H PRN PRN Reason: FEVER Last Admin: 10/23/18 02:16 Dose: 650 mg Aspirin (Ecotrin -) 81 mg PO DAILY [facility] Last Admin: 10/24/18 09:34 Dose: 81 mg Atorvastatin Calcium (Lipitor -) 10 mg PO HS [facility] Last Admin: 10/23/18 21:25 Dose: 10 mg Heparin Sodium (Porcine) (Heparin -) 5,000 unit SQ BID [facility] Last Admin: 10/24/18 09:34 Dose: 5,000 unit Piperacillin Sod/Tazobactam (Sod 3.375 gm/ Dextrose) 50 mls @ 100 mls/hr IVPB Q8H-IV [facility]; Protocol Last Admin: 10/24/18 09:35 Dose: 100 mls/hr Tamsulosin HCl (Flomax -) 0.4 mg PO DAILY@0830 [facility] Last Admin: 10/24/18 09:34 Dose: 0.4 mg - Objective Vital Signs: Vital Signs Temperature 98.7 F 10/24/18 14:58 Pulse Rate 77 10/24/18 14:58 Respiratory Rate 18 10/24/18 14:58 Blood Pressure 133/76 10/24/18 14:58 O2 Sat by Pulse Oximetry (%) 98 10/24/18 09:00 Constitutional: Yes: Mild Distress Eyes: Yes: WNL HENT: Yes: WNL Neck: Yes: WNL Cardiovascular: Yes: WNL Respiratory: Yes: WNL Gastrointestinal: Yes: WNL Musculoskeletal: Yes: WNL Extremities: Yes: WNL Edema: No Peripheral Pulses WNL: Yes Integumentary: Yes: WNL Wound/Incision: Yes: Clean/Dry ...Motor Strength: LUE, LLE Psychiatric: Yes: Other Labs: CBC, BMP 10/22/18 08:20 10/23/18 06:00 INR, PTT INR Cancelled 10/21/18 16:50 Problem List - Problems (1) Old cerebrovascular accident (CVA) without late effect Code(s): Z86.73 - PRSNL HX OF TIA (TIA), AND CEREB INFRC W/O RESID DEFICITS (2) Toxic metabolic encephalopathy Code(s): G92 - TOXIC ENCEPHALOPATHY (3) Acute prostatitis Code(s): N41.0 - ACUTE PROSTATITIS (4) Abnormal LFTs Code(s): R94.5 - ABNORMAL RESULTS OF LIVER FUNCTION STUDIES (5) BPH (benign prostatic hyperplasia) Code(s): N40.0 - BENIGN PROSTATIC HYPERPLASIA WITHOUT LOWER URINRY TRACT SYMP (6) CAD (coronary artery disease) Code(s): I25.10 - ATHSCL HEART DISEASE OF [place] CORONARY ARTERY W/O ANG PCTRS (7) Fever and chills Code(s): R50.9 - FEVER, UNSPECIFIED Assessment/Plan IV ABX AWAIT CULTURES ID/ CONSULT CONFUSION BETTER IVF MONITOR LABS PSA PENDING
[2018-10-24] MEDS: ATORVASTATIN CA 10 MG TABLET (FP) PO SCH (22:01)
--- NOTE | 2018-10-24 22:12 | CONSULT ---
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 Maintained on atorvastatin, tamsulosin and ASA. Said to me s/p CVA (prior neuroimaging records suggest january of 2012) with residual "memory changes." Now admitted with fevers after Prostate biopsy with increased confusion and disorientation. CT of head (reviewed) shows moderate, diffuse, atrophy with old Left frontotemporal and right parietooccipital strokes (both cortical wedges). HERLINDA: No bruits. No head injury. Cor Reg. NEURO: Thinks he knows me. Ox [facility]. Oct 14. . 1949. [place]. Poor reversals. Does recall 3 of 3 No frontal release. No obvious aphasia. CN II-XII: Normal. Full visual bullock. Gag OK Motor: No drift or tremor. Normal strength. Good Barbara. Normal reflexes. Toes downgoing Coord: No FTN dystaxia Sensory: Normal. Romberg - Gait: Min wide-based. IMP: Mild-Moderate B/L cerebral dysfunction (OMS, Chronic). No obvious focality to indicate strokes. Will increase with fevers/infection (Toxic-metabolic encephalopathy). SUGGEST: Old strokes are end- arterial territory cortical wedge-shaped suggesting possible cardioembolic events Would observe as infection clears and detail history of stable cognition (since the strokes) or progressive cognitive decline suggesting supervening degenerative dementia such as Alzheimer's. Would request Out patient cardiology f/u for ambulatory cardiac monitoring for AFib and echocardiogram-possible anticoagulation? Check B12, TSH, RPR. Duplex doppler was normal in 2011 but could update as outpatient. Out patient neuro follow-up for possible Donepezil Rx Thank you very much, Adolfo Dooley MD
[2018-10-25] MEDS ORDERED: PIPERACILLIN/TAZOBACTAM 3.375 GM VIAL IVPB ONE ×2 (01:20→09:09)
[2018-10-25] MEDS ORDERED: DEXTROSE 5%-WATER - 50 ML IVPB ONE ×2 (01:21→09:09)
[2018-10-25] MEDS: PIPERACILLIN/TAZOB 3.375 GM 3.375 GM in DEXTROSE 5%-WATER - 50 ML IVPB SCH ×2 (01:33→09:20)
--- NOTE | 2018-10-25 09:14 | CON.GU ---
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 Cardio/Vascular: Yes: CAD, Hyperlipdemia Renal/: Yes: BPH - Past Surgical History Past Surgical History: Yes: Arthrosocopy (right shoulder), Stent - Alcohol/Substance Use Hx Alcohol Use: Yes (Occasional) History of Substance Use: reports: None - Smoking History Smoking history: Former smoker Have you smoked in the past 12 months: No Aproximately how many cigarettes per day: 10 If you are a former smoker, when did you quit?: 2010 - Social History Usual Living Arrangement: With Spouse ADL: Independent History of Recent Travel: No Home Medications - Allergies Allergies/Adverse Reactions: Allergies Allergy/AdvReac Type Severity Reaction Status Date / Time No Known Allergies Allergy Verified 10/21/18 15:12 - Home Medications Home Medications: Ambulatory Orders Aspirin [Aspirin EC] 81 mg PO DAILY #0 tab.chew 02/04/12 [place]-3 Fatty Acids [[place]-3] 1,000 mg PO DAILY 05/20/14 Pnv/Iron,Carb/Om-3/FA/Fat 1 [Multivitamin with Minerals Cap] 1 each PO DAILY Pravastatin Sodium [Pravachol -] 40 mg PO HS 03/23/18 Physical Exam- Vital Signs: Vital Signs Temperature 98.9 F 10/25/18 06:44 Pulse Rate 76 10/25/18 06:44 Respiratory Rate 20 10/25/18 06:44 Blood Pressure 138/77 10/25/18 06:44 O2 Sat by Pulse Oximetry (%) 98 10/24/18 21:00 Labs: CBC, BMP 10/22/18 08:20 10/23/18 06:00 Assessment/Plan This patient is well known to our practice. Last Tuesday he had a cystoscopy in the office for BPH. His urine prior to the procedure was negative for any infection. He had rocephin 1 gm prior to the procedure and was given a prescription for bactrim post procedure. Subsequently he developed UTI which resulted in his admission. Cystoscopy showed severe cystitis and large obstructing prostate. He was supposed to be scheduled for TUVP sometime in the future. Today he appears to be much better. Can be discharged. Also noted is an increase in PSA, most likely from prostatitis. This will be addressed during his next office visit. Thank you very much
[2018-10-25] MEDS: TAMSULOSIN HCL 0.4 MG CAP PO SCH (09:21)
[2018-10-25] MEDS: ASPIRIN COATED 81 MG TABLET.EC PO SCH (09:22)
[2018-10-25] MEDS: HEPARIN NA (PORCINE) 5,000 UNITS/ML 1ML VIAL SQ SCH (09:22)
[2018-10-25 14:03] VITALS: BP 152/93; PULSE 88; TEMP 98
== END 2018-10-25 11:26 | disposition home or self-care (01) | DRG 862 ==
LOC: JER 14:28 → JERBED 18:16 → J8W 23:41
PROVIDERS: ADMIT Family Medicine; ATTEND Family Medicine
DX: T81.40XA Infection following a procedure, unspecified, initial encounter (principal); A41.9 Sepsis, unspecified organism; G93.41 Metabolic encephalopathy; N39.0 Urinary tract infection, site not specified; Y84.8 Other medical procedures as the cause of abnormal reaction of the patient, or of later complication, without mention of misadventure at the time of the procedure; I25.10 Atherosclerotic heart disease of native coronary artery without angina pectoris; E78.5 Hyperlipidemia, unspecified; N40.0 Benign prostatic hyperplasia without lower urinary tract symptoms; Z87.891 Personal history of nicotine dependence; Z86.73 Personal history of transient ischemic attack (TIA), and cerebral infarction without residual deficits; R94.5 Abnormal results of liver function studies; Z95.5 Presence of coronary angioplasty implant and graft; N41.9 Inflammatory disease of prostate, unspecified; E66.9 Obesity, unspecified; Z68.30 Body mass index [BMI] 30.0-30.9, adult
CPT/HCPCS: 36415; 70450-TC; 71045-TC-FY; 76775-TC; 76856-TC; 80048; 80053; 81003; 82607; 82803; 83605; 84153; 84443; 85025; 86593; 87040; 87086; 93005; 93010; 97116-GP; 97161-GP; 99285-25; J1644

== ENCOUNTER 2018-12-25 09:43 | Inpatient (IN) | payer OTHER ==
--- NOTE | 2018-12-25 10:02 | PDOC ---
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 Per the , the patient was acting slightly confused for the last 3 days in a fog and developed epigastric pain last night that was constant. Per the patient, it was a burning sensation, non radiating, constant, and without aggravating and relieving factors. Per the , he was acting more disoriented (she states he was mumbling more than usual) and had resolution of symptoms in a waxing waning situation. She states it was similar to when he had sepsis. Currently, he has no pain and is asymptomatic. Per the he has more tremors. Denies the following: fever, chills, visual changes, SOB, chest pain, headache, ears/nose/throat pain, recent travels, abdominal pain, dysuria, hematuria, frequency, diarrhea, hematochezia, and leg pain/swelling. Shx: CEA Meds: atorvastatin, aspirin, flomax Allergies: NKDA Social: Denies tobacco, alcohol, and substance abuse. Past History - Past Medical History Allergies/Adverse Reactions: Allergies Allergy/AdvReac Type Severity Reaction Status Date / Time No Known Allergies Allergy Verified 12/25/18 09:52 Home Medications: Ambulatory Orders Aspirin [Aspirin EC] 81 mg PO DAILY #0 tab.chew 02/04/12 Pravastatin Sodium [Pravachol -] 40 mg PO HS 03/23/18 Acetaminophen [Tylenol .Regular Strength -] 650 mg PO Q6H PRN tablet 10/25/18 Tamsulosin HCl [Flomax -] 0.4 mg PO DAILY@0830 #30 cap.er.24h 10/25/18 Anemia: No Asthma: No Cancer: No Cardiac Disorders: Yes (CAD) CVA: Yes (2012-no weakness) COPD: No CHF: No Dementia: No Diabetes: No GI Disorders: No Disorders: Yes (BPH) HTN: No Hypercholesterolemia: Yes Liver Disease: No Seizures: No Thyroid Disease: No - Surgical History Abdominal Surgery: Yes (Left Inguinal Hernia Repair) Appendectomy: No Cardiac Surgery: Yes (CARDIAC STENTS X 3) Cholecystectomy: No Lung Surgery: No Neurologic Surgery: Yes (Cervical Fusion) Orthopedic Surgery: Yes (Cervical Fusion 10yrs ago) - Suicide/Smoking/Psychosocial Hx Smoking Status: No Smoking History: Unknown if ever smoked Have you smoked in the past 12 months: No Number of Cigarettes Smoked Daily: 10 If you are a former smoker, when did you quit?: 2010 Hx Alcohol Use: Yes (Occasional) Drug/Substance Use Hx: No Substance Use Type: Alcohol Hx Substance Use Treatment: No Review of Systems - Review of Systems Able to Perform ROS?: Yes Is the patient limited Armenian proficient: No Constitutional: No: Chills, Diaphoresis, Fever, Weakness HEENTM: No: Eye Pain, Recent change in vision, Ear Pain, Nose Pain, Throat Pain , Mouth Pain Respiratory: No: Cough, Shortness of Breath, SOB with Exertion, SOB at Rest, Hemoptysis Cardiac (ROS): No: Chest Pain, Lightheadedness, Palpitations, Syncope, Chest Tightness ABD/GI: No: Constipated, Diarrhea, Nausea, Poor Appetite, Poor Fluid Intake, Rectal Bleeding, Vomiting, Tarry Stools : No: Burning, Dysuria, Hematuria, Urgency Musculoskeletal: No: Back Pain, Joint Pain, Neck Pain Integumentary: No: Bruising, Rash, Sweating Neurological: No: Headache, Numbness, Tremors, Ataxia, Dizziness Psychiatric: No: Change in Appetite Endocrine: No: Unexplained Weight Gain Hematologic/Lymphatic: No: Anemia *Physical Exam - Vital Signs Last Vital Signs Temp Pulse Resp BP Pulse Ox 99.2 F 112 H 26 H 106/60 95 12/25/18 09:53 12/25/18 09:53 12/25/18 09:53 12/25/18 09:53 12/25/18 09:53 - Physical Exam General Appearance: Yes: Nourished, Appropriately Dressed. No: Apparent Distress, Intoxicated HEENT: positive: EOMI, JESSICA, Normal Voice, Pharynx Normal, Hearing Grossly Normal. negative: Pale Conjunctivae, Photophobia, Scleral Icterus (R), Scleral Icterus (L), Muffled/Hoarse voice, Pharyngeal Erythema, Tonsillar Exudate, Tonsillar Erythema, Excessive drooling Neck: positive: Trachea midline, Supple. negative: Tender, Lymphadenopathy (R) , Lymphadenopathy (L), Tender lateral, Tender midline Respiratory/Chest: positive: Lungs Clear, Normal Breath Sounds. negative: Chest Tender, Respiratory Distress, Accessory Muscle Use, Crackles, Rales, Rhonchi, Stridor, Wheezing, Hyperresonant Cardiovascular: positive: Regular Rhythm, S1, S2, Tachycardia. negative: Systolic Murmur Gastrointestinal/Abdominal: positive: Normal Bowel Sounds, Flat, Soft. negative : Tender, Rebound, Tenderness, Hernia Lymphatic: negative: Adenopathy Musculoskeletal: positive: Normal Inspection. negative: CVA Tenderness, Vertebral Tenderness Extremity: positive: Normal Capillary Refill, Normal Inspection, Normal Range of Motion. negative: Tender, Swelling, Calf Tenderness Integumentary: positive: Normal Color, Dry, Warm. 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 negative: EOM Palsy, Facial Droop, Sensory Deficit Moderate Sedation - Procedure Monitoring Vital Signs: Procedure Monitoring Vital Signs Temperature 99.2 F 12/25/18 09:53 Pulse Rate 112 H 12/25/18 09:53 Respiratory Rate 26 H 12/25/18 09:53 Blood Pressure 106/60 12/25/18 09:53 O2 Sat by Pulse Oximetry (%) 95 12/25/18 09:53 Heart Score/ECG Review - ECG Intrepretation Comment:: 12/25/18 10:45 ventricular rate: 105 bpm, OR 154 ms, QRS 84 ms, QTc is 417 ms. [address]. 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 Initial vitals Initial Vital Signs Temp Pulse Resp BP Pulse Ox 99.2 F 112 H 26 H 106/60 95 12/25/18 09:53 12/25/18 09:53 12/25/18 09:53 12/25/18 09:53 12/25/18 09:53 Work up: ddx: likely sepsis despite oral temperature afebrile. will get rectal temperature. patient feels warm to the touch, has disorientation per the , and is tachy and warm to the touch without complaints. will order the following to elucidate source of infectious etiology: cbc, cmp, blood culture, lactic acid , ua, urine culture, cxr, trop. Interventions: NS Laboratory Tests 12/25/18 12/25/18 12/25/18 11:24 11:47 11:49 WBC 8.9 RBC 4.93 Hgb 15.3 Hct 44.4 MCV 89.9 MCH 30.9 MCHC 34.4 RDW 13.7 Plt Count 290 D MPV 8.0 Absolute Neuts (auto) 8.4 H Neutrophils % 94.0 H Neutrophils % (Manual) 92.0 H Band Neutrophils % 2.0 Lymphocytes % 3.3 L D Lymphocytes % (Manual) 2.0 L Monocytes % 2.5 L Monocytes % (Manual) 4 Eosinophils % 0.1 D Eosinophils % (Manual) 0.0 Basophils % 0.1 Basophils % (Manual) 0.0 Myelocytes % (Man) 0 Promyelocytes % (Man) 0 Blast Cells % (Manual) 0 Nucleated RBC % 0 Metamyelocytes 0 Hypochromia 0 Toxic Granulation 0 Dohle Bodies 0 Platelet Estimate Normal Polychromasia 0 Poikilocytosis 0 Basophilic Stippling 0 Anisocytosis 0 Microcytosis 0 Macrocytosis 0 Spherocytes 0 Sickle Cells 0 Target Cells 0 Tear Drop Cells 0 Ovalocytes 0 Stomatocytes 0 Helmet Cells 0 Bustos-Crystal Lawns Bodies 0 [place] Rings 0 Ki Cells 0 Acanthocytes (Spur) 0 Rouleaux 0 Fragmented RBCs 0 Schistocytes 0 PT with INR INR PTT (Actin FS) VBG pH POC VBG pCO2 POC VBG pO2 Mixed VBG HCO3 Sodium 141 Potassium 4.2 Chloride 105 Carbon Dioxide 29 Anion Gap 7 L BUN 18 Creatinine 1.1 Creat Clearance w eGFR > 60 Random Glucose 114 H Lactic Acid 1.2 Calcium 8.7 Total Bilirubin 0.6 AST 12 L ALT 22 Alkaline Phosphatase 45 Troponin I < 0.02 Total Protein 6.8 Albumin 3.6 Urine Color Urine Appearance Urine pH Ur Specific [place] Urine Protein Urine Glucose (UA) Urine Ketones Urine Blood Urine Nitrite Urine Bilirubin Urine Urobilinogen Ur Leukocyte Esterase Urine WBC (Auto) Urine RBC (Auto) Hyaline Casts Urine Mucus 12/25/18 12/25/18 12/25/18 11:49 11:49 12:35 WBC RBC Hgb Hct MCV MCH MCHC RDW Plt Count MPV Absolute Neuts (auto) Neutrophils % Neutrophils % (Manual) Band Neutrophils % Lymphocytes % Lymphocytes % (Manual) Monocytes % Monocytes % (Manual) Eosinophils % Eosinophils % (Manual) Basophils % Basophils % (Manual) Myelocytes % (Man) Promyelocytes % (Man) Blast Cells % (Manual) Nucleated RBC % Metamyelocytes Hypochromia Toxic Granulation Dohle Bodies Platelet Estimate Polychromasia Poikilocytosis Basophilic Stippling Anisocytosis Microcytosis Macrocytosis Spherocytes Sickle Cells Target Cells Tear Drop Cells Ovalocytes Stomatocytes Helmet Cells Bustos-Crystal [place]wns Bodies [place] Rings Ki Cells Acanthocytes (Spur) Rouleaux Fragmented RBCs Schistocytes PT with INR 13.80 H INR 1.17 H PTT (Actin FS) 35.2 VBG pH 7.43 H POC VBG pCO2 42.7 D POC VBG pO2 44.8 D Mixed VBG HCO3 28.1 H Sodium Potassium Chloride Carbon Dioxide Anion Gap BUN Creatinine Creat Clearance w eGFR Random Glucose Lactic Acid Calcium Total Bilirubin AST ALT Alkaline Phosphatase Troponin I Total Protein Albumin Urine Color Yellow Urine Appearance Clear Urine pH 6.0 Ur Specific [place] 1.021 Urine Protein Negative Urine Glucose (UA) Negative Urine Ketones Negative Urine Blood 2+ H Urine Nitrite Negative Urine Bilirubin Negative Urine Urobilinogen 2.0 Ur Leukocyte Esterase Negative Urine WBC (Auto) 1 Urine RBC (Auto) 10 Hyaline Casts [address] head was negative for an acute pathology and CXR shows no acute pathologies. patients labs were within normal limits. patient to the family continues to have mild disorientation thus shall be admitted for altered mental status for further work up with brain MRI and carotid doppler study Dispo: Admit *DC/Admit/Observation/Transfer Diagnosis at time of Disposition: Altered mental status Qualifiers: Altered mental status type: unspecified Qualified Code(s): R41.82 - Altered mental status, unspecified - Referrals - Patient Instructions - Post Discharge Activity
--- NOTE | 2018-12-25 10:53 | PDOC ---
Attending Attestation - HPI HPI: 12/25/18 10:53 The patient is a 73 year old male with a past medical history of CAD (s/p 3 stents, last was 2010), CVA in 2010 (residual speech deficits and right hand tremor), HLD, and BPH here today for evaluation of epigastric pain and altered mental status. The patients reports that the patient has been acting disoriented and slightly confused for the past 3 days with mumbled speech and that his epigastric pain began last night. The patient notes that his pain is burning, constant, and non radiating. Patients reports that the patients current symptoms are similar to those when the patient had sepsis. Patient denies headache, lightheadedness. Denies fever, chills. Denies chest pain, shortness of breath. Denies nausea, vomiting, diarrhea, abdominal pain. Allergies: NKA PCP: Benoit Warren - Medical Decision Making 12/25/18 10:53 Documentation prepared by STAN Rodas, acting as medical recruiter for Kacnhan La MD. <Mario Her - Last Filed: 12/25/18 10:53> - Resident Resident Name: Cain Kam - ED Attending Attestation I have performed the following: I have examined & evaluated the patient, The case was reviewed & discussed with the resident, I agree w/resident's findings & plan, Exceptions are as noted - Physicial Exam PE: GENERAL: Awake, alert, and oriented to place and person, in no acute distress HEAD: No signs of trauma EYES: PERRLA, EOMI, sclera anicteric, conjunctiva clear ENT: Auricles normal inspection, hearing grossly normal, nares patent, oropharynx clear without exudates. Moist mucosa NECK: Normal ROM, supple, no lymphadenopathy, JVD, or masses LUNGS: Breath sounds equal, clear to auscultation bilaterally. No wheezes, and no crackles HEART: Regular rate and rhythm, normal S1 and S2, no murmurs, rubs or gallops ABDOMEN: Soft, +suprapubic tenderness, normoactive bowel sounds. No guarding, no rebound. No masses EXTREMITIES: Normal range of motion, no edema. No clubbing or cyanosis. No cords, erythema, or tenderness NEUROLOGICAL: Cranial nerves II through XII grossly intact. Normal speech, normal gait. Motor and sensation intact SKIN: Warm, Dry, normal turgor, no rashes or lesions noted. - Medical Decision Making Pt with AMS, no clear etiology on exam as well as lab/imaging findings. Will admit. <Kanchan La - Last Filed: 12/25/18 16:14>
[2018-12-25 11:59] LABS: BASO % 0.1 % (0-2.0); EOS % 0.1 % (0-4.5); HEMATOCRIT 44.4 % (35.4-49); HEMOGLOBIN 15.3 GM/dL (11.7-16.9); LYMPH % 3.3 % (8-40); MCH 30.9 pg (25.7-33.7); MCHC 34.4 g/dl (32.0-35.9); MEAN CELL VOLUME 89.9 fl (80-96); MONO % 2.5 % (3.8-10.2); PLATELET COUNT 290 K/MM3 (134-434); RBC 4.93 M/mm3 (4.00-5.60); RDW 13.7 % (11.9-15.9); WHITE BLOOD COUNT 8.9 K/mm3 (4.0-10.0)
[2018-12-25 12:00] LABS: VENOUS PC02 42.7 mmHg (38-52); VENOUS PH 7.43 (7.32-7.42)
[2018-12-25 12:01] LABS: VENOUS PO2 44.8 mmHg (28-48)
[2018-12-25 12:23] LABS: INR 1.17 (0.83-1.09); PROTHROMBIN TIME (PATIENT) 13.8 SEC (9.7-13.0)
[2018-12-25 12:26] LABS: ACTIVATED PTT 35.2 SECONDS (25.2-36.5)
[2018-12-25 12:36] LABS: ALBUMIN 3.6 g/dl (3.4-5.0); ALK PHOS 45 U/L (45-117); ANION GAP 7 MMOL/L (8-16); BILIRUBIN,TOTAL 0.6 mg/dL (0.2-1); BLOOD UREA NITROGEN 18 mg/dL (7-18); CALCIUM 8.7 mg/dL (8.5-10.1); CHLORIDE 105 mmol/L (98-107); CO2 29 mmol/L (21-32); CREATININE 1.1 mg/dL (0.55-1.3); GLUCOSE,RANDOM 114 mg/dL (74-106); POTASSIUM 4.2 mmol/L (3.5-5.1); SGOT/AST 12 U/L (15-37); SGPT/ALT 22 U/L (13-61); SODIUM 141 mmol/L (136-145); TOT PROT 6.8 g/dl (6.4-8.2)
[2018-12-25 13:10] LABS: URINE APPEARANCE CLEAR; URINE BILIRUBIN NEGATIVE (<2.0 mg/dL); URINE COLOR YELLOW; URINE GLUCOSE (UA) NEGATIVE (NEGATIVE); URINE KETONE NEGATIVE (NEGATIVE); URINE LEUK ESTERASE NEGATIVE (NEGATIVE); URINE NITRITE NEGATIVE (NEGATIVE); URINE PROTEIN NEGATIVE (NEGATIVE)
[2018-12-25 13:27] LABS: URINE HYALINE CAST 1 /lpf; URINE MUCUS FEW
[2018-12-25 15:20] LABS: ANISOCYTOSIS 0; MACROCYTOSIS 0; SICKELED CELLS 0
[2018-12-25 15:21] LABS: ACANTHOCYTES 0; HELMET CELLS 0; HOWELL-JOLLY BODIES 0; OVALOCYTE 0; PLATELET ESTIMATE NORMAL; ROULEAU 0; TARGET CELLS 0; TEAR DROP CELLS 0; TOXIC GRANULATION 0
--- NOTE | 2018-12-25 15:46 | HP ---
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 Cardiovascular: Yes: CAD, Hyperlipdemia Renal/: Yes: BPH - Past Surgical History Past Surgical History: Yes: Arthrosocopy (right shoulder), Stent - Smoking History Smoking history: Unknown if ever smoked Have you smoked in the past 12 months: No Aproximately how many cigarettes per day: 10 If you are a former smoker, when did you quit?: 2010 - Alcohol/Substance Use Hx Alcohol Use: Yes (Occasional) History of Substance Use: reports: None - Social History ADL: Independent History of Recent Travel: No Home Medications - Allergies Allergies/Adverse Reactions: Allergies Allergy/AdvReac Type Severity Reaction Status Date / Time No Known Allergies Allergy Verified 12/25/18 09:52 - Home Medications Home Medications: Ambulatory Orders Aspirin [Aspirin EC] 81 mg PO DAILY #0 tab.chew 02/04/12 Pravastatin Sodium [Pravachol -] 40 mg PO HS 03/23/18 Acetaminophen [Tylenol .Regular Strength -] 650 mg PO Q6H PRN tablet 10/25/18 Tamsulosin HCl [Flomax -] 0.4 mg PO DAILY@0830 #30 cap.er.24h 10/25/18 Review of Systems Unable to obtain ROS, reason: confused disorented Physical Examination Vital Signs: Vital Signs Temperature 99.2 F 12/25/18 09:53 Pulse Rate 112 H 12/25/18 09:53 Respiratory Rate 26 H 12/25/18 09:53 Blood Pressure 106/60 12/25/18 09:53 O2 Sat by Pulse Oximetry (%) 95 12/25/18 09:53 Constitutional: Yes: Calm Cardiovascular: Yes: Regular Rate and Rhythm, S1, S2 Respiratory: Yes: CTA Bilaterally Gastrointestinal: Yes: Normal Bowel Sounds, Soft Edema: No Labs: CBC, BMP 12/25/18 11:49 12/25/18 11:24 Imaging - Results Cat Scan: Report Reviewed (density note in right temporal lobe) Problem List - Problems (1) Altered mental status Assessment/Plan: neurology evaluation check b12,rpr, send UA and urine culture MRI of brain PT eval Code(s): R41.82 - ALTERED MENTAL STATUS, UNSPECIFIED Qualifiers: Altered mental status type: unspecified Qualified Code(s): R41.82 - Altered mental status, unspecified (2) BPH (benign prostatic hyperplasia) Assessment/Plan: flomax Code(s): N40.0 - BENIGN PROSTATIC HYPERPLASIA WITHOUT LOWER URINRY TRACT SYMP (3) CAD (coronary artery disease) Assessment/Plan: asprin nad statin Code(s): I25.10 - ATHSCL HEART DISEASE OF [place] CORONARY ARTERY W/O ANG PCTRS (4) CVA (cerebral vascular accident) Code(s): I63.9 - CEREBRAL INFARCTION, UNSPECIFIED
[2018-12-25] MEDS ORDERED: ACETAMINOPHEN 325 MG TABLET (FP) PO PRN (16:07)
--- NOTE | 2018-12-25 21:00 | CONSULT ---
Consult - text type - Consultation Consultation Note: 73 M with CAD s/p 3 stents (most recent 2010, denies [place]), CVA (2010; residual deficits in speech and right hand tremor), HLD, and BPH presents to the emergency department with epigastric pain with associated disorientation this morning. Per , the patient was acting slightly confused for the last 3 days in a fog and developed epigastric pain last night that was constant. Per the patient, it was a burning sensation, non radiating, constant, and without aggravating and relieving factors. Also with intemittent fevers Shx: CEA Meds: atorvastatin, aspirin, flomax Allergies: NKDA Social: Denies tobacco, alcohol, and substance abuse. Allergies/Adverse Reactions: Allergies Allergy/AdvReac Type Severity Reaction Status Date / Time No Known Allergies Allergy Verified 12/25/18 09:52 Home Medications: Ambulatory Orders Aspirin [Aspirin EC] 81 mg PO DAILY #0 tab.chew 02/04/12 Pravastatin Sodium [Pravachol -] 40 mg PO HS 03/23/18 Acetaminophen [Tylenol .Regular Strength -] 650 mg PO Q6H PRN tablet 10/25/18 Tamsulosin HCl [Flomax -] 0.4 mg PO DAILY@0830 #30 cap.er.24h 10/25/18 PMH Cardiac Disorders: Yes (CAD) CVA: Yes (2012-no weakness) Disorders: Yes (BPH) - Surgical History Abdominal Surgery: Yes (Left Inguinal Hernia Repair) Cardiac Surgery: Yes (CARDIAC STENTS X 3) Neurologic Surgery: Yes (Cervical Fusion) Orthopedic Surgery: Yes (Cervical Fusion 10yrs ago) - Suicide/Smoking/Psychosocial Hx Smoking History: Unknown if ever smoked Hx Alcohol Use: Yes (Occasional) Substance Use Type: Alcohol - Vital Signs Last Vital Signs Temp Pulse Resp BP Pulse Ox 99 F 99 H 19 117/69 99 12/25/18 18:30 12/25/18 18:30 12/25/18 18:30 12/25/18 18:30 12/25/18 16:05 Cor: RSR, No murmurs, No gallops Lungs: Clear to P&A Abd: Soft, Normal bowel sounds, No organomegaly Ext:No significant edema neuro--non focal Abnormal Lab Results 12/25/18 12/25/18 12/25/18 11:24 11:49 11:49 Absolute Neuts (auto) 8.4 H Neutrophils % 94.0 H Neutrophils % (Manual) 92.0 H Lymphocytes % 3.3 L D Lymphocytes % (Manual) 2.0 L Monocytes % 2.5 L PT with INR 13.80 H INR 1.17 H VBG pH Mixed VBG HCO3 Anion Gap 7 L Random Glucose 114 H AST 12 L Urine Blood 12/25/18 12/25/18 11:49 12:35 Absolute Neuts (auto) Neutrophils % Neutrophils % (Manual) Lymphocytes % Lymphocytes % (Manual) Monocytes % PT with INR INR VBG pH 7.43 H Mixed VBG HCO3 28.1 H Anion Gap Random Glucose AST Urine Blood 2+ H Active Medications Generic Name Dose Route Start Last Admin Trade Name Freq PRN Reason Stop Dose Admin Acetaminophen 650 mg 12/25/18 16:07 Tylenol - PO Q6H PRN FEVER Aspirin 81 mg 12/26/18 10:00 Asa - PO DAILY KAYLYN Atorvastatin Calcium 40 mg 12/25/18 22:00 Lipitor - PO HS [facility] Heparin Sodium (Porcine) 5,000 unit 12/25/18 22:00 Heparin - SQ BID KAYLYN Tamsulosin HCl 0.4 mg 12/26/18 08:30 Flomax - PO DAILY@0830 KAYLYN A/P 73 M with CAD s/p 3 stents (most recent 2010, denies [place]), CVA (2010; residual deficits in speech and right hand tremor), HLD, and BPH presents to the emergency department with epigastric pain , intermittent fevers and altered mental status ? dementia with delirium checking cultures CT head--encephalomalacia awaiting MRI carotis --left ica occlusion Noobvious concern for thrombophilia/MPD CBC acceptable -- NlWBC/Hggb/Platelets will follow
[2018-12-25] MEDS: ATORVASTATIN CA 40 MG TABLET (FP) PO SCH (21:57)
[2018-12-25] MEDS: HEPARIN NA (PORCINE) 5,000 UNITS/ML 1ML VIAL SQ SCH (21:57)
[2018-12-26 00:55] VITALS: BMI 28.4
[2018-12-26] MEDS ORDERED: PT OWN MED DRAWER 7, Y5N ONE (06:03)
[2018-12-26 07:53] LABS: BASO % 0.2 % (0-2.0); EOS % 0.2 % (0-4.5); HEMOGLOBIN 14.6 GM/dL (11.7-16.9); LYMPH % 11.8 % (8-40); MCH 30.8 pg (25.7-33.7); MEAN CELL VOLUME 90.6 fl (80-96); MEAN PLT VOLUME 8.2 fl (7.5-11.1); MONO % 6.8 % (3.8-10.2); PLATELET COUNT 264 K/MM3 (134-434); RBC 4.74 M/mm3 (4.00-5.60); RDW 14.2 % (11.9-15.9); WHITE BLOOD COUNT 6.7 K/mm3 (4.0-10.0)
--- NOTE | 2018-12-26 08:04 | PN ---
Progress Note, Physician Chief Complaint: AWAKE ALERT AND ORIENTED X 2 DENIES CHEST PAIN OR SOB EVENTS AND NOTES REVIEWED - Current Medication List Current Medications: Active Medications Acetaminophen (Tylenol -) 650 mg PO Q6H PRN PRN Reason: FEVER Aspirin (Asa -) 81 mg PO DAILY [facility] Atorvastatin Calcium (Lipitor -) 40 mg PO HS [facility] Last Admin: 12/25/18 21:57 Dose: 40 mg Heparin Sodium (Porcine) (Heparin -) 5,000 unit SQ BID [facility] Last Admin: 12/25/18 21:57 Dose: 5,000 unit Tamsulosin HCl (Flomax -) 0.4 mg PO DAILY@0830 [facility] - Objective Vital Signs: Vital Signs Temperature 99.9 F H 12/26/18 06:00 Pulse Rate 78 12/26/18 06:00 Respiratory Rate 20 12/26/18 06:00 Blood Pressure 111/58 L 12/26/18 06:00 O2 Sat by Pulse Oximetry (%) 99 12/25/18 21:00 Constitutional: Yes: No Distress Eyes: Yes: WNL HENT: Yes: WNL Neck: Yes: WNL Cardiovascular: Yes: Regular Rate and Rhythm Respiratory: Yes: WNL Gastrointestinal: Yes: WNL, Soft Genitourinary: Yes: WNL Musculoskeletal: Yes: WNL Extremities: Yes: WNL Edema: No Peripheral Pulses WNL: Yes Integumentary: Yes: WNL Wound/Incision: Yes: Clean/Dry Neurological: Yes: Confusion ...Motor Strength: LLE, RLE Psychiatric: Yes: WNL Labs: INR, PTT INR 1.17 (0.83-1.09) H 12/25/18 11:49 Problem List - Problems (1) Altered mental status Code(s): R41.82 - ALTERED MENTAL STATUS, UNSPECIFIED Qualifiers: Altered mental status type: unspecified Qualified Code(s): R41.82 - Altered mental status, unspecified (2) BPH (benign prostatic hyperplasia) Code(s): N40.0 - BENIGN PROSTATIC HYPERPLASIA WITHOUT LOWER URINRY TRACT SYMP (3) CAD (coronary artery disease) Code(s): I25.10 - ATHSCL HEART DISEASE OF [place] CORONARY ARTERY W/O ANG PCTRS (4) HLD (hyperlipidemia) Code(s): E78.5 - HYPERLIPIDEMIA, UNSPECIFIED (5) Old cerebrovascular accident (CVA) without late effect Code(s): Z86.73 - PRSNL HX OF TIA (TIA), AND CEREB INFRC W/O RESID DEFICITS (6) Toxic metabolic encephalopathy Code(s): G92 - TOXIC ENCEPHALOPATHY Assessment/Plan MRI OF BRAIN DONE RESULTS PENDING R/O TOXIC METABOLIC ENCEPHALOPATHY NEURO EVAL H/O OLD CVA WITH CAROTID OCCLUSION S/P ENDARTECTOMY. RECALL VASC SX FOR EVAL POSSIBLT LATE EFFECT DEMENTIA MAY BE CAUSING EPISODED OF ALTERED MENTAL STATUS. PATIENT'S MEMORY HAS BEEN SLOWLY DECLINING OVER PAST YEAR. LIPID PANEL PT EVAL
[2018-12-26 08:29] LABS: ALBUMIN 3.1 g/dl (3.4-5.0); ALK PHOS 36 U/L (45-117); ANION GAP 7 MMOL/L (8-16); BILIRUBIN,TOTAL 0.5 mg/dL (0.2-1); BLOOD UREA NITROGEN 19 mg/dL (7-18); CALCIUM 7.6 mg/dL (8.5-10.1); CHLORIDE 106 mmol/L (98-107); CHOLESTEROL 99 mg/dL (50-200); CO2 28 mmol/L (21-32); GLUCOSE,RANDOM 98 mg/dL (74-106); HDL CHOLESTEROL 40 mg/dL (40-60); MAGNESIUM 1.8 mg/dL (1.8-2.4); PHOSPHOROUS 3.1 mg/dL (2.5-4.9); POTASSIUM 3.7 mmol/L (3.5-5.1); SGOT/AST 13 U/L (15-37); SGPT/ALT 21 U/L (13-61); SODIUM 141 mmol/L (136-145); TOT PROT 6.2 g/dl (6.4-8.2); TRIGLYCERIDES 67 mg/dL (0-150)
[2018-12-26] MEDS: HEPARIN NA (PORCINE) 5,000 UNITS/ML 1ML VIAL SQ SCH ×2 (09:46→21:56)
[2018-12-26] MEDS: ASPIRIN 81 MG CHEWABLE TABLETS PO SCH (09:46)
[2018-12-26] MEDS: TAMSULOSIN HCL 0.4 MG CAP PO SCH (09:46)
--- NOTE | 2018-12-26 10:09 | CON.CARD ---
Consult Consult Specialty:: Cardiology Referred by:: Dr. Warren Reason for Consultation:: CVA, carotid stenosis - History of Present Illness Chief Complaint: AMS, chills, abd discomfort History of Present Illness: 73 year old man with pmh HTN, HLD, CAD with prior stents x 3 last 2010, h/o CVA 2010, Carotid stenosis s/p L CEA, BPH admitted with epigastric pain, AMS, chills. Noted to have Acute and chronic infarcts b/l on Brain MRI and a nearly totally occluded LICA on Carotid doppler. Pt seen and examined today in nad with family at bedside. Pt states he is feeling well. denies any current complaints. Denies any chest pain, sob, palpitations. No pnd, orthopnea, or LE edema. - History Source History Provided By: Patient, Family Member Limitations to Obtaining History: Poor Historian - Past Medical History PELLETIZER: Yes: CVA Cardio/Vascular: Yes: CAD, Hyperlipdemia Renal/: Yes: BPH - Past Surgical History Past Surgical History: Yes: Arthrosocopy (right shoulder), Stent - Alcohol/Substance Use Hx Alcohol Use: Yes (Occasional) History of Substance Use: reports: None - Smoking History Smoking history: Unknown if ever smoked Have you smoked in the past 12 months: No Aproximately how many cigarettes per day: 10 If you are a former smoker, when did you quit?: 2010 - Social History Usual Living Arrangement: With Spouse ADL: Independent History of Recent Travel: No Home Medications - Allergies Allergies/Adverse Reactions: Allergies Allergy/AdvReac Type Severity Reaction Status Date / Time No Known Allergies Allergy Verified 12/25/18 09:52 - Home Medications Home Medications: Ambulatory Orders Aspirin [Aspirin EC] 81 mg PO DAILY #0 tab.chew 02/04/12 Pravastatin Sodium [Pravachol -] 40 mg PO HS 03/23/18 Acetaminophen [Tylenol .Regular Strength -] 650 mg PO Q6H PRN tablet 10/25/18 Tamsulosin HCl [Flomax -] 0.4 mg PO DAILY@0830 #30 cap.er.24h 10/25/18 Family Disease History - Family Disease History Family History: Denies Review of Systems - Review of Systems Constitutional: reports: Chills, Weakness. denies: No Symptoms, Diaphoresis, Fever, Lethargy, Loss of Appetite, Malaise, Night Sweats, Unintentional Wgt. Loss, Other Eyes: denies: No Symptoms, Blind Spots, Blurred Vision, Double Vision, Eye Pain , Floaters, Photophobia, Recent Change in Vision, Other HENT: denies: No Symptoms, Difficult Swallowing, Ear Discharge, Ear Pain, Epistaxis, Gingival Bleeding, Hearing Loss, Mouth Swelling, Nasal Congestion, Ocular Prosthesis, Throat Pain, Toothache, Ringing in Ears, Other Neck: denies: No Symptoms, Decreased ROM, Lumps, Pain on Movement, Stiffness, Swollen Glands, Tenderness, Other Cardiovascular: denies: No Symptoms, Chest Pain, Edema, Palpitations, Shortness of Breath, Other Respiratory: denies: No Symptoms, Cough, Exercise Intolerance, Hemoptysis, Orthopnea, PND, Snoring, SOB, SOB on Exertion, Wheezing, Other Gastrointestinal: reports: Abdominal Pain. denies: No Symptoms, Bloating, Constipation, Diarrhea, Dysphagia, Indigestion, Melena, Nausea, Rectal Bleeding , Vomiting, Vomiting Blood, Other Genitourinary: denies: No Symptoms, Burning, Discharge, Dysuria, Flank Pain, Frequency, Hematuria, Incontinence, Lesions, Menses, Pain, Testicular Mass, Testicular Pain, Testicular Swelling, Urgency, Vaginal Bleeding, Other Breasts: denies: No Symptoms Reported, See HPI, Breast Implants, Discharge from Nipple, Lumps, Pain, Skin Changes, Other Musculoskeletal: denies: No Symptoms, Back Pain, Crepitus, Decreased ROM, Extremity Pain, Joint Pain, Joint Swelling, Muscle Pain, Muscle Cramps, Muscle Weakness, Other Integumentary: denies: No Symptoms, Blister, Bruising, Change in Color, Eczema, Erythema, Incision, Lesions, Lump, Pallor, Pruritis, Rash, Wound, Other Neurological: denies: No Symptoms, Change in LOC, Change in Speech, Confusion, Dizziness, Headache, Incoordination, Numbness, Parasthesia, Pre-Existing Deficit , Seizure, Syncope, Tremors, Unsteady Gait, Weakness, Other Endocrine: denies: No Symptoms, Excessive Sweating, Flushing, Increased Hunger, Increased Thirst, Intolerance to Cold, Intolerance to Heat, Unexplained Weight Gain, Unexplained Weight Loss, Other Hematology/Lymphatic: denies: No Symptoms, Easily Bruised, Excessive Bleeding, Swollen Glands, Other Psychiatric: denies: No Symptoms, Altered Sleep Pattern, Anxiety, Depression, Hallucinations, Panic, Paranoia, Suicidal, Other - Risk Factors Known Risk Factors: Yes: Hypercholesterolemia, Prior OR /Emb Stroke Vital Signs: Vital Signs Temperature 99.9 F H 12/26/18 06:00 Pulse Rate 78 12/26/18 06:00 Respiratory Rate 20 12/26/18 06:00 Blood Pressure 111/58 L 12/26/18 06:00 O2 Sat by Pulse Oximetry (%) 99 12/25/18 21:00 Constitutional: Yes: No Distress, Calm Eyes: Yes: Conjunctiva Clear, EOM Intact HENT: Yes: Atraumatic, Normocephalic Neck: Yes: Supple, Trachea Midline Respiratory: Yes: Regular, CTA Bilaterally. No: Rales, Rhonchi, Wheezes Gastrointestinal: Yes: Normal Bowel Sounds, Soft. No: Distention, Tenderness Cardiovascular: Yes: Regular Rate and Rhythm. No: Bradycardia, Tachycardia, Pulse Irregular, Gallop, Rub, Varicosities JVD: No Carotid Bruit: No PMI: Non-Displaced Heart Sounds: Yes: S1, S2. No: Split S2, S3, S4, Clicks, Gallop, Rub, Bruit Murmur: No: Systolic Murmur, Diastolic Murmur Extremities: Yes: WNL Edema: No Peripheral Pulses WNL: Yes Neurological: Yes: Alert Psychiatric: Yes: Alert - Other Data Labs, Other Data: CBC, BMP 12/26/18 07:00 12/26/18 07:00 INR, PTT INR 1.17 (0.83-1.09) H 12/25/18 11:49 Troponin, BNP 12/25/18 11:24 Troponin I < 0.02 Troponin, BNP 12/25/18 11:24 Troponin I < 0.02 10/21 NSR 69bpm, lad Echo: Report Reviewed Imaging - Results Chest X-ray: Report Reviewed, Image Reviewed EKG: Report Reviewed, Image Reviewed Other: Report Reviewed, Image Reviewed Assessment/Plan 73 year old man with pmh HTN, HLD, CAD with prior stents x 3 last 2010, h/o CVA 2010, Carotid stenosis s/p L CEA, BPH admitted with epigastric pain, AMS, chills. Noted to have Acute and chronic infarcts b/l on Brain MRI and a nearly totally occluded LICA on Carotid doppler. CVA/Carotid stenosis-LICA near total occlusion, h/o Carotid stenosis s/p CEA LICA -Vascular to evaluate -cont ASA and statin for now CAD-with prior stents last 2010 -stable -asymptomatic -cont ASA and statin -no additional inpatient work up is needed at this time. Please call with any additional questions.
--- NOTE | 2018-12-26 10:21 | CONSULT ---
<Po Rao - Last Filed: 12/26/18 10:51> - Consultation REQUESTING PROVIDER: CONSULT REQUEST: We have been asked to surgically evaluate this patient for Left internal carotid stenosis PCP:Benoit Warren HISTORY OF PRESENT ILLNESS: 73yo M presented to the ED with complaints of AMS. Pt was admitted and part of work up had carotid duplex study, which showed complete stenosis of Left Internal carotid. Pt states that he had a Left carotid endarterectomy [place] [address] Botello. Pt denies any vision changes, dizziness, weakness. Pt is a little confused, but able to answer most questions. PMHx: HLD, BPH Home Medications Medication Instructions Recorded Aspirin [Aspirin EC] 81 mg PO DAILY #0 tab.chew 02/04/12 Pravastatin Sodium [Pravachol -] 40 mg PO HS 03/23/18 Acetaminophen [Tylenol .Regular 650 mg PO Q6H PRN tablet 10/25/18 Strength -] Tamsulosin HCl [Flomax -] 0.4 mg PO DAILY@0830 #30 cap.er.24h 10/25/18 Allergies Allergy/AdvReac Type Severity Reaction Status Date / Time No Known Allergies Allergy Verified 12/25/18 09:52 PHYSICAL EXAM: GENERAL: Awake, alert, and fully oriented, in no acute distress. HEAD: Normal with no signs of trauma. EYES: PERRL, sclera anicteric, conjunctiva clear. NECK: Normal ROM, supple without lymphadenopathy, JVD, or masses. Old incision Left neck LUNGS: Clear to auscultation bilat anteriorly. No wheezes, and no crackles. No accessory muscle use. HEART: Regular rate and rhythm. No murmurs ABDOMEN: Soft, nontender, not distended, normoactive bowel sounds, no guarding, no rebound, no masses. No organomegaly. UPPER EXTREMITIES: 2+ pulses, warm, well-perfused. No cyanosis. Cap refill <2 seconds. No peripheral edema. LOWER EXTREMITIES: 2+ pulses, warm, well-perfused. No calf tenderness. No peripheral edema. NEUROLOGICAL: Normal speech, gait not observed. PSYCH: Cooperative. Good eye contact. Appropriate mood and affect. SKIN: Warm, dry, normal turgor, no rashes or lesions noted. Vital Signs Temperature 99.9 F H 12/26/18 06:00 Pulse Rate 78 12/26/18 06:00 Respiratory Rate 20 12/26/18 06:00 Blood Pressure 111/58 L 12/26/18 06:00 O2 Sat by Pulse Oximetry (%) 99 12/25/18 21:00 Lab Results WBC 6.7 K/mm3 (4.0-10.0) 12/26/18 07:00 RBC 4.74 M/mm3 (4.00-5.60) 12/26/18 07:00 Hgb 14.6 GM/dL (11.7-16.9) 12/26/18 07:00 Hct 43.0 % (35.4-49) 12/26/18 07:00 MCV 90.6 fl (80-96) 12/26/18 07:00 MCHC 34.0 g/dl (32.0-35.9) 12/26/18 07:00 RDW 14.2 % (11.9-15.9) 12/26/18 07:00 Plt Count 264 K/MM3 (134-434) 12/26/18 07:00 Sodium 141 mmol/L (136-145) 12/26/18 07:00 Potassium 3.7 mmol/L (3.5-5.1) 12/26/18 07:00 Chloride 106 mmol/L (98-107) 12/26/18 07:00 Carbon Dioxide 28 mmol/L (21-32) 12/26/18 07:00 Anion Gap 7 MMOL/L (8-16) L 12/26/18 07:00 BUN 19 mg/dL (7-18) H 12/26/18 07:00 Creatinine 1.0 mg/dL (0.55-1.3) 12/26/18 07:00 Random Glucose 98 mg/dL (74-106) 12/26/18 07:00 Calcium 7.6 mg/dL (8.5-10.1) L 12/26/18 07:00 INR 1.17 (0.83-1.09) H 12/25/18 11:49 Problem List - Problems (1) Carotid stenosis, left Assessment/Plan: Plan -carotid stenosis seems unrelated to current issues, pt had Carotid US done Jul 2018 that showed carotid open, current duplex is low quality, no acute surgical intervention needed at this time. -pt should follow up with Dr. Botello in clinic as outpatient for further work up. Case discussed with Dr. Botello who agrees with plan Code(s): I65.22 - OCCLUSION AND STENOSIS OF LEFT CAROTID ARTERY <Ra Botello - Last Filed: 12/26/18 19:49> - Consultation REQUESTING PROVIDER: CONSULT REQUEST: We have been asked to surgically evaluate this patient for ( specify). PCP:Benoit Warren HISTORY OF PRESENT ILLNESS: PMHx: PSHx: Home Medications Medication Instructions Recorded Aspirin [Aspirin EC] 81 mg PO DAILY #0 tab.chew 02/04/12 Pravastatin Sodium [Pravachol -] 40 mg PO HS 03/23/18 Acetaminophen [Tylenol .Regular 650 mg PO Q6H PRN tablet 10/25/18 Strength -] Tamsulosin HCl [Flomax -] 0.4 mg PO DAILY@0830 #30 cap.er.24h 10/25/18 Allergies Allergy/AdvReac Type Severity Reaction Status Date / Time No Known Allergies Allergy Verified 12/25/18 09:52 REVIEW OF SYSTEMS: CONSTITUTIONAL: Absent: fever, chills, diaphoresis, generalized weakness, malaise, loss of appetite, weight change CARDIOVASCULAR: Absent: chest pain, syncope, palpitations, irregular heart rate, lightheadedness , peripheral edema RESPIRATORY: Absent: cough, shortness of breath, dyspnea with exertion, wheezing, stridor, hemoptysis GASTROINTESTINAL: Absent: abdominal pain, abdominal distension, nausea, vomiting, diarrhea, constipation, melena, hematochezia GENITOURINARY: Absent: dysuria, frequency, urgency, hesitancy, hematuria, flank pain, genital pain MUSCULOSKELETAL: Absent: myalgia, arthralgia, joint swelling, back pain, neck pain SKIN: Absent: rash, itching, pallor HEMATOLOGIC/IMMUNOLOGIC: Absent: easy bleeding, easy bruising, lymphadenopathy NEUROLOGIC: Absent: headache, focal weakness, paresthesias, dizziness, unsteady gait, seizure, mental status changes, bladder or bowel incontinence PSYCHIATRIC: Absent: anxiety, depression, suicidal or homicidal ideation, hallucinations. PHYSICAL EXAM: GENERAL: Awake, alert, and fully oriented, in no acute distress. HEAD: Normal with no signs of trauma. EYES: PERRL, sclera anicteric, conjunctiva clear. NECK: Normal ROM, supple without lymphadenopathy, JVD, or masses. LUNGS: Clear to auscultation bilat anteriorly. No wheezes, and no crackles. No accessory muscle use. HEART: Regular rate and rhythm. No murmurs ABDOMEN: Soft, nontender, not distended, normoactive bowel sounds, no guarding, no rebound, no masses. No organomegaly. MUSCULOSKELETAL: Normal ROM at all joints. No bony deformities or tenderness. No CVA tenderness. UPPER EXTREMITIES: 2+ pulses, warm, well-perfused. No cyanosis. Cap refill <2 seconds. No peripheral edema. LOWER EXTREMITIES: 2+ pulses, warm, well-perfused. No calf tenderness. No peripheral edema. NEUROLOGICAL: Normal speech, gait not observed. PSYCH: Cooperative. Good eye contact. Appropriate mood and affect. SKIN: Warm, dry, normal turgor, no rashes or lesions noted. Vital Signs Temperature 98.3 F 12/26/18 18:30 Pulse Rate 91 H 12/26/18 18:30 Respiratory Rate 18 12/26/18 18:30 Blood Pressure 115/64 12/26/18 18:30 O2 Sat by Pulse Oximetry (%) 94 L 12/26/18 09:00 Lab Results WBC 6.7 K/mm3 (4.0-10.0) 12/26/18 07:00 RBC 4.74 M/mm3 (4.00-5.60) 12/26/18 07:00 Hgb 14.6 GM/dL (11.7-16.9) 12/26/18 07:00 Hct 43.0 % (35.4-49) 12/26/18 07:00 MCV 90.6 fl (80-96) 12/26/18 07:00 MCHC 34.0 g/dl (32.0-35.9) 12/26/18 07:00 RDW 14.2 % (11.9-15.9) 12/26/18 07:00 Plt Count 264 K/MM3 (134-434) 12/26/18 07:00 Sodium 141 mmol/L (136-145) 12/26/18 07:00 Potassium 3.7 mmol/L (3.5-5.1) 12/26/18 07:00 Chloride 106 mmol/L (98-107) 12/26/18 07:00 Carbon Dioxide 28 mmol/L (21-32) 12/26/18 07:00 Anion Gap 7 MMOL/L (8-16) L 12/26/18 07:00 BUN 19 mg/dL (7-18) H 12/26/18 07:00 Creatinine 1.0 mg/dL (0.55-1.3) 12/26/18 07:00 Random Glucose 98 mg/dL (74-106) 12/26/18 07:00 Calcium 7.6 mg/dL (8.5-10.1) L 12/26/18 07:00 INR 1.17 (0.83-1.09) H 12/25/18 11:49 History reviewed and patient examined. He was admitted with altered mental status and abdominal pain which have resolved. A carotid Duplex was reported as showing occlusion of the left internal carotid following endarterectomy in 2011. A recent study in my office was normal. He denies any symptoms of an acute stroke or TIA. he has had a left cerebral infarct in the past (prior to endarterectomy). Of note, he was recently treated for possible urosepsis with > 1 month of antibiotics. Currently he is awake and alert, restless. No lateralizing symptoms. No bruit Abd is distended but soft. Carotid Duplex reviewed: Flow not seen in proximal ICA but no other signs consistent with ICA occlusion present. Imp: Possible occlusion of left ICA but this would be very unusual 7 years after carotid endarterectomy when most recent Duplex scan was entirely normal. The current Duplex is suspect and will be repeated as outpatient in an accredited lab. There is no intervention required for a carotid occlusion so no further evaluation is needed at this time.
--- NOTE | 2018-12-26 14:49 | ECHO ---
Name: BRADEN CAT Exam:Adult Echocardiogram Study Date: 12/26/2018 09:52 AM Age: 73 yrs Reason For Study: R/O EMBOLISM H/O CVA Height: 66 in Weight: 180 lb BSA: 1.9 m2 MMode/2D Measurements & Calculations IVSd: 0.81 cm Ao root diam: 3.7 cm LVIDd: 4.6 cm LA dimension: 3.3 cm LVIDs: 3.3 cm LVPWd: 0.76 cm EDV(Teich): 98.4 ml TAPSE: 2.6 cm ESV(Teich): 44.7 ml Doppler Measurements & Calculations MV E max mik: 43.6 cm/sec Ao V2 max: 139.6 cm/sec MV A max mik: 81.4 cm/sec Ao max P.8 mmHg MV E/A: 0.54 Ao V2 mean: 90.0 cm/sec Ao mean P.8 mmHg Ao V2 VTI: 23.4 cm AI P1/2t: 415.6 msec AI max mik: 303.9 cm/sec LV V1 max P.0 mmHg AI max P.0 mmHg LV V1 mean P.3 mmHg LV V1 max: 86.0 cm/sec AI dec slope: 214.2 cm/sec2 LV V1 mean: 51.5 cm/sec LV V1 VTI: 17.4 cm TR max mik: 175.9 cm/sec Med Peak E' Mik: 4.6 cm/sec TR max P.5 mmHg Med E/e': 9.5 Lat Peak E' Mik: 7.4 cm/sec Lat E/e': 5.9 Procedure A complete two-dimensional transthoracic echocardiogram was performed (2D, M-mode, Doppler and color flow Doppler). The study was technically difficult with many images being suboptimal in quality. Left Ventricle The left ventricle is normal in structure and function. Ejection Fraction = 60%. Grade I diastolic dysfunction, (abnormal relaxation pattern). Right Ventricle The right ventricle is normal in size and function. Atria Normal left and right atrial size and function. Mitral Valve The mitral valve is normal in structure and function. Tricuspid Valve The tricuspid valve is normal in structure and function. There is mild tricuspid regurgitation. Aortic Valve The aortic valve is normal in structure and function. Moderate aortic regurgitation. Pulmonic Valve The pulmonic valve is not well visualized. Great Vessels The aortic root is normal size. Pericardium/Pleura There is no pericardial effusion. Interpretation Summary The right ventricle is normal in size and function. The left ventricle is normal in structure and function. The aortic valve is normal in structure and function. Moderate aortic regurgitation. Emerson Smith 12/26/2018 02:48 PM
--- NOTE | 2018-12-26 15:50 | EKG ---
Test Reason : Blood Pressure : / mmHG Vent. Rate : 105 BPM Atrial Rate : 105 BPM P-R Int : 154 ms QRS Dur : 084 ms QT Int : 316 ms P-R-T Axes : 057 -58 074 degrees QTc Int : 417 ms SINUS TACHYCARDIA LEFT ANTERIOR FASCICULAR BLOCK ABNORMAL ECG WHEN COMPARED WITH ECG OF 21-OCT-2018 15:17, VENT. RATE HAS INCREASED BY 36 BPM T WAVE AMPLITUDE HAS INCREASED IN INFERIOR LEADS Confirmed by Emerson Smith ([id number]) on 12/26/2018 3:50:11 PM Referred By: Confirmed By:Emerson Smith
--- NOTE | 2018-12-26 21:21 | CONSULT ---
Consult - text type - Consultation Consultation Note: NEUROLOGY CONSULTATION is greatly appreciated: Events and imaging studies reviewed. Cardiology and vascular surgery consultations are read and appreciated. This 73 yo RH man with h/o Chol and ASHD is s/p cardiac stents and left Carotid endarectomy 3 yrs ago (Dr. Botello). Apparently has had serial f/u doppler which did not suggest reocclusion. On Pravastatin, ASA, tamsulosin. Seen by me in 2011 after CVA with memory changes after this time. Seen by me 10/24/18 with increased confusion associated with fever after prostate biopsy. Now admitted after 3 days of increased confusion and "talking too much" according to the patient. No sign of infection. CT and MRI reviewed: Moderately severe atrophy with extremely chronic left frontotemporal infarct (encephalomalacia) and a more recent right occipital CVA. 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 Carotid duplex Doppler suggests possible left carotid occlusion or subcritical stenosis but vascular doubts. Suspects technical? HERLINDA: Left carotid bruit. S/P L CEA. Cor reg. No evidence of external head trauma. NEURO: Awake, alert, cooperative. Speech is sparse but fluent. Follows 1, 2 step commands Ox [facility], [place], Dec 1918. Trump. Recalls 2 of 3 at 3 mins. CN: Full visual bullock and EOM's.. No facial. Tongue DAYAN's and gag near normal Motor: Min left drift. Normal strength. Sl reduced DAYAN's (L>R). Brisk reflexes right Babinski. Coord: No FTN dystaxia. Sensory: Normal Gait: Sl wide based. Unsteady with turns. IMP: Mild-Moderate B/L cerebral dysfunction (OMS, Chronic features). Mild B/L motor findings (Mr. Martinez is doing surprisingly well considering the size and number of strokes and degree of brain atrophy) Possible left carotid occlusion/subcritical stenosis (apparently new, if present). If the presenting event was, indeed, transient speech disturbance, one could not only consider TIA, but also a partial seizure due to the old frontal CVA. SUGGEST: If questions persist about the degree of left carotid stenosis or occlusion I would recommend confirmation with MR or CT Angio to determine the proper course of action at this time. Add Plavix to ASA if no contraindication. Check B12, RPR, TSH Consider Donepezil Rx beginning with 5 mg after breakfast. Out patient neuro f/u and EEG. Thank you very much, Adolfo Dooley MD
[2018-12-26] MEDS: ATORVASTATIN CA 40 MG TABLET (FP) PO SCH (21:56)
[2018-12-27] MEDS ORDERED: PT OWN MED DRAWER 7, Y5N ONE (01:37)
[2018-12-27] MEDS: TAMSULOSIN HCL 0.4 MG CAP PO SCH (08:53)
--- NOTE | 2018-12-27 09:28 | PN ---
Progress Note, Physician - Current Medication List Current Medications: Active Medications Acetaminophen (Tylenol -) 650 mg PO Q6H PRN PRN Reason: FEVER Aspirin (Asa -) 81 mg PO DAILY [facility] Last Admin: 12/26/18 09:46 Dose: 81 mg Atorvastatin Calcium (Lipitor -) 40 mg PO HS [facility] Last Admin: 12/26/18 21:56 Dose: 40 mg Heparin Sodium (Porcine) (Heparin -) 5,000 unit SQ BID [facility] Last Admin: 12/26/18 21:56 Dose: 5,000 unit Tamsulosin HCl (Flomax -) 0.4 mg PO DAILY@0830 [facility] Last Admin: 12/27/18 08:53 Dose: 0.4 mg - Objective Vital Signs: Vital Signs Temperature 98.6 F 12/27/18 06:00 Pulse Rate 73 12/27/18 06:00 Respiratory Rate 20 12/27/18 06:00 Blood Pressure 128/74 12/27/18 06:00 O2 Sat by Pulse Oximetry (%) 95 12/26/18 21:00 Labs: CBC, BMP 12/26/18 07:00 12/26/18 07:00 INR, PTT INR 1.17 (0.83-1.09) H 12/25/18 11:49 Problem List - Problems (1) CVA (cerebral vascular accident) Assessment/Plan: MRI noted--Acute CVA On asa and statin Neuro and cardio on board Code(s): I63.9 - CEREBRAL INFARCTION, UNSPECIFIED (2) Altered mental status Assessment/Plan: due to above Code(s): R41.82 - ALTERED MENTAL STATUS, UNSPECIFIED Qualifiers: Altered mental status type: unspecified Qualified Code(s): R41.82 - Altered mental status, unspecified (3) Carotid stenosis, left Assessment/Plan: Vascular consult Code(s): I65.22 - OCCLUSION AND STENOSIS OF LEFT CAROTID ARTERY (4) CAD (coronary artery disease) Assessment/Plan: -no cp Monitor Code(s): I25.10 - ATHSCL HEART DISEASE OF [place] CORONARY ARTERY W/O ANG PCTRS
[2018-12-27] MEDS: ASPIRIN 81 MG CHEWABLE TABLETS PO SCH (10:39)
[2018-12-27] MEDS: HEPARIN NA (PORCINE) 5,000 UNITS/ML 1ML VIAL SQ SCH ×2 (10:39→21:47)
--- NOTE | 2018-12-27 15:02 | EKG ---
Test Reason : Blood Pressure : / mmHG Vent. Rate : 069 BPM Atrial Rate : 069 BPM P-R Int : 160 ms QRS Dur : 084 ms QT Int : 386 ms P-R-T Axes : 049 -30 051 degrees QTc Int : 413 ms SINUS RHYTHM WITH PREMATURE ATRIAL COMPLEXES LEFT AXIS DEVIATION ABNORMAL ECG WHEN COMPARED WITH ECG OF 25-DEC-2018 09:55, PREMATURE ATRIAL COMPLEXES ARE NOW PRESENT VENT. RATE HAS DECREASED BY 36 BPM Confirmed by LORETTA SHEIKH MD ([id number]) on 12/27/2018 3:01:34 PM Referred By: Gordon REDMAN Confirmed By:LORETTA SHEIKH MD
[2018-12-27] MEDS ORDERED: CLOPIDOGREL BISULFATE 75 MG TABLET (FP) PO SCH (15:15)
--- NOTE | 2018-12-27 16:08 | PN ---
Progress Note, Physician History of Present Illness: seen; and examined today in [facility]. no new complaints. - Current Medication List Current Medications: Active Medications Acetaminophen (Tylenol -) 650 mg PO Q6H PRN PRN Reason: FEVER Aspirin (Asa -) 81 mg PO DAILY [facility] Last Admin: 12/27/18 10:39 Dose: 81 mg Atorvastatin Calcium (Lipitor -) 40 mg PO HS [facility] Last Admin: 12/26/18 21:56 Dose: 40 mg Heparin Sodium (Porcine) (Heparin -) 5,000 unit SQ BID [facility] Last Admin: 12/27/18 10:39 Dose: 5,000 unit Tamsulosin HCl (Flomax -) 0.4 mg PO DAILY@0830 [facility] Last Admin: 12/27/18 08:53 Dose: 0.4 mg - Objective Vital Signs: Vital Signs Temperature 97.7 F 12/27/18 15:04 Pulse Rate 70 12/27/18 15:04 Respiratory Rate 20 12/27/18 15:04 Blood Pressure 123/64 12/27/18 15:04 O2 Sat by Pulse Oximetry (%) 97 12/27/18 10:30 Constitutional: Yes: No Distress, Calm Eyes: Yes: Conjunctiva Clear, EOM Intact, PERRL HENT: Yes: Atraumatic, Normocephalic Neck: Yes: Supple, Trachea Midline Cardiovascular: Yes: Regular Rate and Rhythm, S1, S2. No: Bradycardia, Tachycardia, Pulse Irregular, Bruit, JVD, Gallop, Murmur, Rub, S3, S4, Varicosities Respiratory: Yes: Regular, CTA Bilaterally. No: Rales, Rhonchi, Wheezes Gastrointestinal: Yes: Normal Bowel Sounds, Soft Edema: No Peripheral Pulses WNL: Yes Neurological: Yes: Alert, Oriented Psychiatric: Yes: Alert, Oriented Labs: CBC, BMP 12/26/18 07:00 12/26/18 07:00 INR, PTT INR 1.17 (0.83-1.09) H 12/25/18 11:49 - ....Imaging Chest X-ray: Report Reviewed, Image Reviewed EKG: Report Reviewed, Image Reviewed Other: Report Reviewed, Image Reviewed Assessment/Plan 73 year old man with pmh HTN, HLD, CAD with prior stents x 3 last 2010, h/o CVA 2010, Carotid stenosis s/p L CEA, BPH admitted with epigastric pain, AMS, chills. Noted to have Acute and chronic infarcts b/l on Brain MRI and a nearly totally occluded LICA on Carotid doppler. CVA/Carotid stenosis-LICA reported near total occlusion, h/o Carotid stenosis s/ p CEA LICA -MRI brain showed acute and chronic b/l infarcts -Vascular evaluated, note reviewed -neuro evaluated recc Plavix however pt has an allergy to Plavix reported -cont ASA and statin -no current cardiac indication for full AC with warfarin or NOAC, no documented afib or aflutter -ekg today nsr with 1 apc -holter monitor placed and pt is being transferred to [facility] for monitoring overnight for arrhythmia -if no arrhythmias identified during admission would recc further event monitoring and possible loop recorder implant as outpatient CAD-with prior stents last 2010 -stable -asymptomatic -cont ASA and statin -no additional inpatient work up is needed at this time.
[2018-12-27] MEDS: ATORVASTATIN CA 40 MG TABLET (FP) PO SCH (21:47)
[2018-12-28] MEDS: TAMSULOSIN HCL 0.4 MG CAP PO SCH (09:30)
--- NOTE | 2018-12-28 10:00 | PN ---
Progress Note, Physician Chief Complaint: AWAKE ALERT COMPLETED EEG DENIES CHEST PAIN/SOB/AIKEN - Current Medication List Current Medications: Active Medications Acetaminophen (Tylenol -) 650 mg PO Q6H PRN PRN Reason: FEVER Aspirin (Asa -) 81 mg PO DAILY [facility] Last Admin: 12/27/18 10:39 Dose: 81 mg Atorvastatin Calcium (Lipitor -) 40 mg PO HS [facility] Last Admin: 12/27/18 21:47 Dose: 40 mg Heparin Sodium (Porcine) (Heparin -) 5,000 unit SQ BID [facility] Last Admin: 12/27/18 21:47 Dose: 5,000 unit Tamsulosin HCl (Flomax -) 0.4 mg PO DAILY@0830 [facility] Last Admin: 12/27/18 08:53 Dose: 0.4 mg - Objective Vital Signs: Vital Signs Temperature 97.2 F L 12/28/18 06:43 Pulse Rate 65 12/28/18 06:43 Respiratory Rate 20 12/28/18 06:43 Blood Pressure 135/73 12/28/18 06:43 O2 Sat by Pulse Oximetry (%) 95 12/27/18 21:00 Constitutional: Yes: Mild Distress Eyes: Yes: WNL HENT: Yes: WNL Neck: Yes: WNL Cardiovascular: Yes: WNL Respiratory: Yes: WNL Gastrointestinal: Yes: WNL Musculoskeletal: Yes: WNL Extremities: Yes: WNL Edema: No Peripheral Pulses WNL: Yes Integumentary: Yes: WNL Wound/Incision: Yes: Clean/Dry Neurological: Yes: Pre-Existing Deficit ...Motor Strength: WNL Psychiatric: Yes: WNL Labs: CBC, BMP 12/26/18 07:00 12/26/18 07:00 INR, PTT INR 1.17 (0.83-1.09) H 12/25/18 11:49 Problem List - Problems (1) Altered mental status Code(s): R41.82 - ALTERED MENTAL STATUS, UNSPECIFIED Qualifiers: Altered mental status type: unspecified Qualified Code(s): R41.82 - Altered mental status, unspecified (2) BPH (benign prostatic hyperplasia) Code(s): N40.0 - BENIGN PROSTATIC HYPERPLASIA WITHOUT LOWER URINRY TRACT SYMP (3) CAD (coronary artery disease) Code(s): I25.10 - ATHSCL HEART DISEASE OF [place] CORONARY ARTERY W/O ANG PCTRS (4) HLD (hyperlipidemia) Code(s): E78.5 - HYPERLIPIDEMIA, UNSPECIFIED (5) Old cerebrovascular accident (CVA) without late effect Code(s): Z86.73 - PRSNL HX OF TIA (TIA), AND CEREB INFRC W/O RESID DEFICITS (6) Toxic metabolic encephalopathy Code(s): G92 - TOXIC ENCEPHALOPATHY Assessment/Plan AWAIT EEG RESULTS START AGGRENOX TODAY BID NO ARRYTHMIA ON TELE NO NEED FOR AC PT EVAL OOB TO CHAIR DC PLANNING TOMORROW
[2018-12-28] MEDS: ASPIRIN 81 MG CHEWABLE TABLETS PO SCH (10:05)
[2018-12-28] MEDS: HEPARIN NA (PORCINE) 5,000 UNITS/ML 1ML VIAL SQ SCH ×2 (10:13→21:18)
--- NOTE | 2018-12-28 16:06 | PN ---
Progress Note, Physician History of Present Illness: Seen and examined today in [facility]. no overnight events. no new complaints. - Current Medication List Current Medications: Active Medications Acetaminophen (Tylenol -) 650 mg PO Q6H PRN PRN Reason: FEVER Aspirin (Asa -) 81 mg PO DAILY [facility] Last Admin: 12/28/18 10:05 Dose: 81 mg Atorvastatin Calcium (Lipitor -) 40 mg PO HS [facility] Last Admin: 12/27/18 21:47 Dose: 40 mg Heparin Sodium (Porcine) (Heparin -) 5,000 unit SQ BID [facility] Last Admin: 12/28/18 10:13 Dose: 5,000 unit Tamsulosin HCl (Flomax -) 0.4 mg PO DAILY@0830 [facility] Last Admin: 12/28/18 09:30 Dose: 0.4 mg - Objective Vital Signs: Vital Signs Temperature 98.0 F 12/28/18 14:00 Pulse Rate 68 12/28/18 14:00 Respiratory Rate 20 12/28/18 06:43 Blood Pressure 125/53 L 12/28/18 14:00 O2 Sat by Pulse Oximetry (%) 95 12/28/18 09:00 Constitutional: Yes: No Distress, Calm Eyes: Yes: Conjunctiva Clear, EOM Intact, PERRL HENT: Yes: Atraumatic, Normocephalic Neck: Yes: Supple, Trachea Midline Cardiovascular: Yes: Regular Rate and Rhythm, S1, S2. No: Bradycardia, Tachycardia, Pulse Irregular, Bruit, JVD, Gallop, Murmur, Rub, S3, S4, Varicosities Respiratory: Yes: Regular, CTA Bilaterally. No: Rales, Rhonchi, Wheezes Gastrointestinal: Yes: Normal Bowel Sounds, Soft. No: Distention, Tenderness Breast(s): Yes: WNL Musculoskeletal: Yes: WNL Extremities: Yes: WNL Edema: No Peripheral Pulses WNL: Yes Peripheral Pulses: Left Doralis Pedis: 2+, Right Dorsalis Pedis: 2+ Neurological: Yes: Alert, Oriented Psychiatric: Yes: Alert, Oriented Labs: CBC, BMP 12/26/18 07:00 12/26/18 07:00 INR, PTT INR 1.17 (0.83-1.09) H 12/25/18 11:49 - ....Imaging Chest X-ray: Report Reviewed, Image Reviewed EKG: Report Reviewed, Image Reviewed Other: Report Reviewed, Image Reviewed Assessment/Plan 73 year old man with pmh HTN, HLD, CAD with prior stents x 3 last 2010, h/o CVA 2010, Carotid stenosis s/p L CEA, BPH admitted with epigastric pain, AMS, chills. Noted to have Acute and chronic infarcts b/l on Brain MRI and a nearly totally occluded LICA on Carotid doppler. CVA/Carotid stenosis-LICA reported near total occlusion, h/o Carotid stenosis s/ p CEA LICA -MRI brain showed acute and chronic b/l infarcts -Vascular evaluated, note reviewed, plan to repeat Carotid evaluation as outpatient -neuro evaluated recc Plavix however pt has an allergy to Plavix reported -cont ASA and statin -no current cardiac indication for full AC with warfarin or NOAC, no documented afib or aflutter -to be discussed with neurology if Aggrenox is an option -no significant arrhythmias on tele overnight, sinus with pvcs, no afib or aflutter -recc further event monitoring as outpatient and if no occult arrhythmias detected would then strongly consider a Loop recorder implant CAD-with prior stents last 2010 -stable -asymptomatic -cont ASA and statin No additional inpatient cardiac work up needed at this time. Please call again with any further questions.
[2018-12-28] MEDS: ASPIRIN/DIPYRIDAMOLE 25 MG/200 MG CAPSULE (FP) PO SCH (21:18)
[2018-12-28] MEDS: ATORVASTATIN CA 40 MG TABLET (FP) PO SCH (21:18)
[2018-12-29] MEDS ORDERED: ACETAMINOPHEN 325 MG TABLET (FP) PO PRN (07:48)
[2018-12-29] MEDS ORDERED: TAMSULOSIN HCL 0.4 MG CAP PO SCH (08:30)
[2018-12-29] MEDS ORDERED: HEPARIN NA (PORCINE) 5,000 UNITS/ML 1ML VIAL SQ SCH (10:00)
[2018-12-29] MEDS ORDERED: ASPIRIN 81 MG CHEWABLE TABLETS PO SCH (10:00)
--- NOTE | 2018-12-29 10:48 | HOL ---
Hook-up date: 2018-12-27 14:54:00 Duration: 24:00:00 Test Indications: CVA, APCS Medications: 92784 QRS complexes 60 Ventricular ectopics which represent <1 % of total QRS comp. 3 Supraventricular ectopics which represent <1 % of total QRS comp. * Paced QRS complexs which represent % of total QRS comp. * % of Time Classified as Noise VENTRICULAR ECTOPY 50 Isolated 0 Bigeminal Cycles 5 Couplets 0 Runs 0 Beats in Runs * Beats LONGEST at * BPM at :: -- * Beats FASTEST at * BPM at :: -- SUPRAVENTRICULAR ECTOPY 3 Isolated 0 Couplets 0 Runs 0 Beats in Runs * Beats LONGEST at * BPM at :: -- * Beats FASTEST at * BPM at :: -- HEART RATES 48 MIN at 02:44:08 2018-12-28 65 AVG 97 MAX at 19:42:37 2018-12-27 LONGEST RR 1.608 secs at 02:44:02 2018-12-28 The underlying rhythm was normal sinus with an average heart rate of 65 bpm ( 48bpm minimum; 97bpm maximum). Rare ventricular premature contractions and rare ventricular couplets. Rare atrial premature contractions. No significant pauses. There were no diary entries. Confirmed by NOHEMY EATON MD ([id number]) on 12/29/2018 10:47:40 AM Referred By: SARAH JOHNSON DR Overread By: NOHEMY EATON MD
[2018-12-29] MEDS: ASPIRIN/DIPYRIDAMOLE 25 MG/200 MG CAPSULE (FP) PO SCH (11:50)
--- NOTE | 2018-12-29 13:45 | PN ---
Progress Note, Physician Chief Complaint: AMS CAD Left internal carotid artery stenosis History of Present Illness: Previous notes and events reviewed awake and alert NAD denies complaints of chest pain, SOB, dizziness - Current Medication List Current Medications: Active Medications Acetaminophen (Tylenol -) 650 mg PO Q6H PRN PRN Reason: FEVER Aspirin (Asa -) 81 mg PO DAILY [facility] Last Admin: 12/29/18 11:50 Dose: 81 mg Atorvastatin Calcium (Lipitor -) 40 mg PO HS [facility] Dipyridamole/Aspirin (Aggrenox -) 1 combo PO BID [facility] Last Admin: 12/29/18 11:50 Dose: 1 combo Heparin Sodium (Porcine) (Heparin -) 5,000 unit SQ BID [facility] Last Admin: 12/29/18 11:50 Dose: 5,000 unit Tamsulosin HCl (Flomax -) 0.4 mg PO DAILY@0830 [facility] Last Admin: 12/29/18 11:50 Dose: 0.4 mg - Objective Vital Signs: Vital Signs Temperature 97.6 F 12/29/18 10:00 Pulse Rate 68 12/29/18 10:00 Respiratory Rate 20 12/29/18 10:00 Blood Pressure 139/69 12/29/18 10:00 O2 Sat by Pulse Oximetry (%) 94 L 12/29/18 09:00 Constitutional: Yes: Well Nourished, No Distress, Calm Eyes: Yes: Conjunctiva Clear HENT: Yes: Normocephalic Neck: Yes: Supple Cardiovascular: Yes: Regular Rate and Rhythm Respiratory: Yes: Regular, CTA Bilaterally Gastrointestinal: Yes: Normal Bowel Sounds, Soft Musculoskeletal: Yes: WNL Extremities: Yes: WNL Edema: No Neurological: Yes: Alert, Oriented Psychiatric: Yes: Alert, Oriented Labs: CBC, BMP 12/26/18 07:00 12/26/18 07:00 INR, PTT INR 1.17 (0.83-1.09) H 12/25/18 11:49 Problem List - Problems (1) Altered mental status Assessment/Plan: -neuro on board -EEG pending results Code(s): R41.82 - ALTERED MENTAL STATUS, UNSPECIFIED Qualifiers: Altered mental status type: unspecified Qualified Code(s): R41.82 - Altered mental status, unspecified (2) Carotid stenosis, left Assessment/Plan: -started on aggrenox -vascular consult appreciated -will repeat carotid artery US as outpatient Code(s): I65.22 - OCCLUSION AND STENOSIS OF LEFT CAROTID ARTERY (3) HLD (hyperlipidemia) Assessment/Plan: -continue atorvastatin Code(s): E78.5 - HYPERLIPIDEMIA, UNSPECIFIED (4) Old cerebrovascular accident (CVA) without late effect Assessment/Plan: -pending eeg results -cardiology on board Code(s): Z86.73 - PRSNL HX OF TIA (TIA), AND CEREB INFRC W/O RESID DEFICITS Assessment/Plan see problem list
[2018-12-29 13:51] VITALS: BP 110/61; PULSE 74; TEMP 97.4
--- NOTE | 2018-12-29 16:41 | DS ---
Physical Examination Vital Signs: Vital Signs Temperature 97.4 F L 12/29/18 13:50 Pulse Rate 74 12/29/18 13:50 Respiratory Rate 18 12/29/18 13:50 Blood Pressure 110/61 12/29/18 13:50 O2 Sat by Pulse Oximetry (%) 94 L 12/29/18 09:00 Findings/Remarks: Patient is a 73 y/o male with past medical history of CVA, CAD with stents, BPH presented to ER with complaints of AMS for 2 days. Brain MRI performed and show acute nonhemorrhagic infarcts located to ventral, dorsal-cortex, of right- middle front gyrus. Neurology consulted and recommendation appreciated. Carotid US performed and EEG done, results reviewed. Constitutional: Yes: Well Nourished, No Distress, Calm Eyes: Yes: Conjunctiva Clear HENT: Yes: Normocephalic Neck: Yes: Supple Cardiovascular: Yes: Regular Rate and Rhythm Respiratory: Yes: Regular, CTA Bilaterally Gastrointestinal: Yes: Normal Bowel Sounds, Soft Musculoskeletal: Yes: WNL Extremities: Yes: WNL Edema: No Neurological: Yes: Alert, Oriented Psychiatric: Yes: Alert, Oriented Labs: CBC, BMP 12/26/18 07:00 12/26/18 07:00 Discharge Summary Reason For Visit: ALTERED MENTAL STATUS Current Active Problems Altered mental status (Acute) Carotid stenosis, left (Acute) Hospital Course: see progress notes CBC, BMP 12/26/18 07:00 12/26/18 07:00 Microbiology 12/25/18 11:47 Blood Culture - Preliminary Blood - Peripheral Venous NO GROWTH OBTAINED AFTER 96 HOURS, INCUBATION TO CONTINUE FOR 1 DAYS. 12/25/18 11:47 Blood Culture - Preliminary Blood - Peripheral Venous NO GROWTH OBTAINED AFTER 96 HOURS, INCUBATION TO CONTINUE FOR 1 DAYS. Active Medications Acetaminophen (Tylenol -) 650 mg PO Q6H PRN PRN Reason: FEVER Aspirin (Asa -) 81 mg PO DAILY [facility] Last Admin: 12/29/18 11:50 Dose: 81 mg Atorvastatin Calcium (Lipitor -) 40 mg PO HS [facility] Dipyridamole/Aspirin (Aggrenox -) 1 combo PO BID [facility] Last Admin: 12/29/18 11:50 Dose: 1 combo Heparin Sodium (Porcine) (Heparin -) 5,000 unit SQ BID [facility] Last Admin: 12/29/18 11:50 Dose: 5,000 unit Tamsulosin HCl (Flomax -) 0.4 mg PO DAILY@0830 [facility] Last Admin: 12/29/18 11:50 Dose: 0.4 mg Condition: Stable - Instructions Diet, Activity, Other Instructions: Patient to follow up with omd in 1 week patient to follow up with neurology in 1 week patient to follow up with cardiology in 1 week Low Na diet continue with medication as prescribed if develop chest pain, AMS, sob, dizziness go to nearest ER Referrals: Benoit Warren MD [Primary Care Provider] - Adolfo Dooley MD [Staff Physician] - Wayne Allen MD [Staff Physician] - Disposition: HOME - Home Medications Comprehensive Discharge Medication List: Ambulatory Orders Aspirin [Aspirin EC] 81 mg PO DAILY #0 tab.chew 02/04/12 Pravastatin Sodium [Pravachol -] 40 mg PO HS 03/23/18 Acetaminophen [Tylenol .Regular Strength -] 650 mg PO Q6H PRN tablet 10/25/18 Tamsulosin HCl [Flomax -] 0.4 mg PO DAILY@0830 #30 cap.er.24h 10/25/18
[2018-12-29] MEDS ORDERED: ATORVASTATIN CA 40 MG TABLET (FP) PO SCH (22:00)
== END 2018-12-29 17:30 | disposition home or self-care (01) | DRG 64 ==
LOC: JER 09:43 → SUPCPDRO 09:43 → JERBED 15:05 → J5S 18:06 → J4W 12-27 17:11
PROVIDERS: ADMIT Family Medicine; ATTEND Family Medicine
DX: I63.89 Other cerebral infarction (principal); G93.41 Metabolic encephalopathy; G91.8 Other hydrocephalus; I65.22 Occlusion and stenosis of left carotid artery; R41.82 Altered mental status, unspecified; E78.5 Hyperlipidemia, unspecified; I10 Essential (primary) hypertension; I25.10 Atherosclerotic heart disease of native coronary artery without angina pectoris; Z98.61 Coronary angioplasty status; N40.0 Benign prostatic hyperplasia without lower urinary tract symptoms; F03.90 Unspecified dementia, unspecified severity, without behavioral disturbance, psychotic disturbance, mood disturbance, and anxiety
CPT/HCPCS: 36415; 70450-TC; 70551-TC; 71045-TC-FY; 80053; 80061; 81003; 81015; 82607; 82803; 83605; 83721; 83735; 84100; 84443; 84484; 85025; 85610; 85651; 85730; 86593; 87040; 87086; 93005; 93010; 93225; 93226; 93306-TC; 93880-TC; 95816; 97116-GP; 97161-GP; 99285-25; J1644

== ENCOUNTER 2022-02-25 04:36 | Day surgery (SDC) | payer OTHER ==
[2022-02-23 11:45] VITALS: BMI 30.4
[2022-02-25 08:33] VITALS: TEMP 97.5
[2022-02-25 10:38] VITALS: BP 142/59; PULSE 50
== END 2022-02-25 10:42 | disposition home or self-care (01) ==
LOC: JASU-ENDO 04:36
PROVIDERS: ATTEND Internal Medicine Gastroenterology
PROC: 0DJD8ZZ Inspection of Lower Intestinal Tract, Via Natural or Artificial Opening Endoscopic (ICD-10-PCS; principal; 2022-02-25 09:30)
DX: R10.84 Generalized abdominal pain (principal); K64.8 Other hemorrhoids